=== PATIENT | male | born 1950 | race Caucasian/White ===

== ENCOUNTER → 2017-12-24 08:33 | Outpatient (CLI) | payer MEDICARE, OTHER, SELFPAY ==
--- NOTE | 2017-12-24 12:33 | PFT ---
INTRODUCTION: The patient is a 67-year-old male currently under the care of Dr. Mendiola the presents for pulmonary function testing secondary to a diagnosis of cough. Respiratory therapy reports good patient effort. Bronchodilators were used during testing. INTERPRETATION: Forced expiration spirometry demonstrates no evidence of a large airways obstructive ventilatory defect. There was no significant response to aerosolized bronchodilators, based upon strict ATS criteria. Spirometry did indicate the presence of a decreased FVC to 69% of predicted, which can be seen in restrictive lung mechanics. However, lung volumes would need to be completed to confirm the presence of a restrictive ventilatory impairment. IMPRESSION: Grossly normal spirometry. No significant bronchodilator response. Reduced FVC could be suggestive of underlying restrictive ventilatory impairment, however, lung volumes would need to be completed to confirm this assertion.
== END ==
PROVIDERS: Family Provider Family Medicine; PCP Family Medicine; Visit Provider Otolaryngology Otolaryngology/Facial Plastic Surgery
DX: R05 Cough (principal)
CPT/HCPCS: 94060

== ENCOUNTER → 2018-02-24 20:00 | Outpatient (CLI) | payer MEDICARE, OTHER, SELFPAY | PROVIDERS: Family Provider Family Medicine; PCP Family Medicine; Visit Provider Internal Medicine Critical Care Medicine | DX: G47.10 Hypersomnia, unspecified (principal) | CPT/HCPCS: 95810 ==

== ENCOUNTER → 2018-04-14 20:00 | Outpatient (CLI) | payer MEDICARE, OTHER, SELFPAY | PROVIDERS: Family Provider Family Medicine; PCP Family Medicine; Visit Provider Nurse Practitioner Acute Care | DX: G47.33 Obstructive sleep apnea (adult) (pediatric) (principal) | CPT/HCPCS: 95811 ==

== ENCOUNTER → 2019-08-28 08:45 | Outpatient (CLI) | payer MEDICARE, OTHER, SELFPAY ==
[2019-08-27 15:32] VITALS: BMI 34.3
== END ==
PROVIDERS: PCP Family Medicine; Referring Provider Internal Medicine Cardiovascular Disease; Visit Provider Internal Medicine Cardiovascular Disease
DX: R00.1 Bradycardia, unspecified (principal)
CPT/HCPCS: 93225; 93226

== ENCOUNTER → 2019-09-15 06:48 | Outpatient (CLI) | payer MEDICARE, OTHER, SELFPAY ==
[2019-08-27 15:32] VITALS: BMI 34.3
--- NOTE | 2019-09-15 06:49 | ECHOCS_ITS ---
Reason For Study: MURMUR Procedure This was a 2D Doppler, Color Flow transthoracic echocardiogram. The study was technically difficult. Due to body habitus. Contrast injection was performed. Exam performed in department. Left Ventricle Based upon the 2D echocardiographic and contrast enhanced images obtained there appears to be grossly normal left ventricular size, wall motion, and systolic function. The estimated ejection fraction is 65 %. No evidence for diastolic dysfunction. Right Ventricle Normal RV size. Normal systolic function. Atria Normal left atrium. Normal right atrium. No doppler evidence for ASD. Mitral Valve There is mild mitral annular calcification. Mild diffuse mitral valve thickening. Trivial mitral valve insufficiency. Tricuspid Valve Normal tricuspid valve. Trivial tricuspid valve insufficiency. Right ventricular systolic pressure estimated to be 28 mmHg. Aortic Valve Trisinus/trileaflet aortic valve. Mild focal aortic valve calcification. Trivial aortic valve insufficiency. Pulmonic Valve The pulmonic valve is not well visualized. Trivial pulmonic valve insufficiency. Great Vessels Normal sized aortic root. Pericardium/Pleural No pericardial effusion. Medication Diluted definity 3.0ml given slow IV push to enhance endocardial definition. MMode/2D Measurements & Calculations LVIDd: 4.5 cm IVSd: 0.90 cm Ao root diam: 3.3 cm LVIDs: 2.8 cm LVPWd: 0.98 cm RVDd: 4.2 cm FS: 37.5 % LAV(MOD-bp): 46.0 ml LA A4 area: 15.3 cm2 LA dimension(2D): 4.4 cm LAV(MOD-bp) Indexed: 22.1 ml/m2 LAV(MOD-sp2): 52.3 ml LAV(MOD-sp4): 39.9 ml RA A4 area: 13.5 cm2 Time Measurements MV dec time: 0.20 sec Doppler Measurements & Calculations MV E max trever: 67.1 cm/sec Lat Peak E' Trever: 7.8 cm/sec Med Peak E' Trever: 5.4 cm/sec MV A max trever: 88.5 cm/sec E/E' lat: 8.6 E/E' med: 12.5 MV E/A: 0.76 Ao V2 max: 154.3 cm/sec AI max trever: 365.7 cm/sec LV V1 max: 103.3 cm/sec Ao max P.5 mmHg AI max P.5 mmHg LV V1 max P.3 mmHg Ao V2 mean: 103.0 cm/sec AI dec slope: 195.6 cm/sec2 Ao mean P.7 mmHg AI P1/2t: 547.5 msec Ao V2 VTI: 31.5 cm PA V2 max: 116.3 cm/sec TR max trever: 248.9 cm/sec TR max P.9 mmHg Interpretation Summary The study was technically difficult. Contrast injection was performed. Based upon the 2D echocardiographic and contrast enhanced images obtained there appears to be grossly normal left ventricular size, wall motion, and systolic function. The estimated ejection fraction is 65 %. There is mild mitral annular calcification. Mild diffuse mitral valve thickening. Trivial mitral valve insufficiency. Trivial aortic valve insufficiency. Trivial tricuspid valve insufficiency. Trivial pulmonic valve insufficiency. Right ventricular systolic pressure estimated to be 28 mmHg. No evidence for diastolic dysfunction. Ordering Physician: Hermes Smith Referring Physician: Arun Ortiz Performed By: Veronica Roy, ANAND, RVT
--- NOTE | 2019-09-15 20:57 | STRESSREP ---
Stress Test Report Date: 09-15-2019 Procedure: Exercise tolerance test/imaging study Indications: Chest pain Consent: Per the patient Procedure: The patient exercised on a José Miguel protocol for 9 minutes completing Stage III achieving a peak heart rate of 131 bpm (85 % predicted maximal heart rate) with a peak blood pressure 172/68 mmHg and a peak MET capacity of 10 METs. The baseline ECG demonstrated sinus bradycardia. The peak exercise ECG demonstrated somatic/motion artifact with no obvious ECG changes. There was a rare PVC during exercise. The functional capacity was considered good. There was no complaint of chest discomfort during exercise or recovery. The examination was discontinued secondary to dyspnea. Impression: 1. Technically adequate (percent predicted maximal heart rate greater than 85%) exercise tolerance test 2. Peak exercise ECG with somatic/motion artifact with no obvious ECG changes 3. There was a rare PVC during exercise 4. Nuclear images pending Myocardial perfusion imaging study: Technique: The patient was injected with 14.5 mCi of technetium 99m Cardiolite and subsequently rest SPECT Cardiolite nuclear imaging was obtained in the horizontal long, vertical long, and short axis views. The patient exercised on a José Miguel protocol for 9 minutes completing Stage III achieving a peak heart rate of 131 bpm (85 % predicted maximal heart rate) with a peak blood pressure 172/68 mmHg and a peak MET capacity of 10 METs. The patient was injected with 44.2 mCi of technetium 99m Cardiolite and subsequently stress SPECT Cardiolite nuclear imaging was obtained in the horizontal long, vertical long, and short axis views. A gated Cardiolite study at peak stress was obtained. Interpretation: Rest and stress SPECT Cardiolite nuclear imaging status post realignment, normalization, and attenuation correction, demonstrates the appearance of relative uniform tracer uptake and myocardial perfusion appearing within normal limits. There is end systolic thickening and brightening. The gated Cardiolite study demonstrates myocardial thickening and inward wall motion. The reported LVEF is 85 %. Impression: 1. Rest and stress SPECT Cardiolite nuclear imaging demonstrate relative uniform tracer uptake and myocardial perfusion appearing within normal limits. 2. The gated Cardiolite study reports an LVEF of 85 %. This note was generated with [employer] software. It may contain incorrect words, spelling, and punctuation that were not noted in checking the note before signing.
== END ==
PROVIDERS: PCP Family Medicine; Referring Provider Internal Medicine Cardiovascular Disease; Visit Provider Internal Medicine Cardiovascular Disease
DX: R07.9 Chest pain, unspecified (principal); R01.1 Cardiac murmur, unspecified
CPT/HCPCS: 78452; 93017; 93306; A9500; Q9957; A4216; C8929

== ENCOUNTER 2020-05-15 06:09 | Emergency (ER) | payer MEDICARE, OTHER, SELFPAY ==
[2019-11-25 09:55] VITALS: BMI 34.6
[2020-05-15 06:10] VITALS: BP 145/60; PULSE 55; RESP 21; TEMP 36.5; O2SAT 96; BMI 34.5
--- NOTE | 2020-05-15 06:20 | EKG12_ITS ---
Test Reason : CP Blood Pressure : / mmHG Vent. Rate : 053 BPM Atrial Rate : 053 BPM P-R Int : 180 ms QRS Dur : 084 ms QT Int : 488 ms P-R-T Axes : 028 -24 -11 degrees QTc Int : 457 ms Sinus bradycardia Minimal voltage criteria for LVH, may be normal variant Cannot rule out Anterior infarct , age undetermined Abnormal ECG Confirmed by FEDERICA LUQUE, LAZARA ([id number]), content editor STANLEY MATAMOROS ([id number]) on 05/16/2020 2:01:08 PM Referred By: VOLODYMYR Confirmed By:LAZARA STALLWORTH MD
--- NOTE | 2020-05-15 06:20 | RAD_ITS ---
STUDY: X-RAY CHEST REASON FOR EXAM: Male, 69 years old. Chest pain radiating to back and right shoulder. TECHNIQUE: Single AP portable view of the chest. COMPARISON: None. FINDINGS: Poor inspiration with some bibasilar atelectasis. There is no demonstrated pleural abnormality. There is moderate cardiac enlargement. Normal mediastinum and eva. Normal visualized pulmonary arteries. Normal visualized aortic arch and descending thoracic aorta. Normal visualized thoracic spine. Normal visualized ribs, clavicles, and shoulders. There is no demonstrated abnormality of the visualized soft tissue structures of the upper abdomen. RAD/Chest 1 View (Portable) IMPRESSION: Poor inspiration with some bibasilar atelectasis. Electronically Signed: Anson Narayan MD at 7:12 EST Tel , Service support ,
--- NOTE | 2020-05-15 06:24 | ED.VIS.GEN ---
History of Present Illness Chief Complaint: Chest Pain Informant: Patient Onset: Today Narrative: Present by private vehicle sudden midsternal sharp chest pain awakening from sleep 1/2-hour prior to arrival. Pain rating to his back and right shoulder. Denies dyspnea. Denies any pain with deep breaths. States has a normal cough however no tobacco history. History of hypertension hypercholesterolemia. Denies diabetes history. History of enlarged prostate. States he has stress test this past September when he went and saw Dr. Smith. He states he was referred by himself, stating after PCP visit, he noticed a concern look from nurses when they looked at his vitals. No history of heart cath. Denies family history of MIs at a young age. No recent travel, surgeries, or immobilizations. No history of PE or DVT. States currently his chest pain symptoms has resolved has mild pain in his back and right shoulder. No medications taken prior to arrival. 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 Smoking Status: Never smoker - Family History Maternal Family History: Family History (Last Reviewed 11/25/19 @ 15:08 by Ronit CAMPOS, PA) Mother CVA (cerebral vascular accident) Father CHF (congestive heart failure) Brother Cancer Family History: Reports: Stroke Paternal Family History: Family History (Last Reviewed 11/25/19 @ 15:08 by Ronit CAMPOS, PA) Mother CVA (cerebral vascular accident) Father CHF (congestive heart failure) Brother Cancer Family History: Reports: - - Peripheral vascular disease Review of Systems General: Denies: Chills, Fever, Sweats Eyes: Denies: Visual changes - bilaterally, Diplopia ENT: Denies: Rhinorrhea, Sore throat Cardiovascular: Reports: Chest pain. Denies: Palpitations Respiratory: Reports: Cough. Denies: Dyspnea, Dyspnea on exertion Gastrointestinal: Denies: Abdominal pain, Nausea, Vomiting, Diarrhea, Melena, Hematochezia Genitourinary: Denies: Dysuria, Hematuria, Frequency Musculoskeletal: Denies: Back pain, Extremity Pain Skin: Denies: Rash, Wounds Neurological: Denies: Headache, Weakness, Numbness Physical Exam Vital Signs/Narrative: Vital Signs Temp Pulse Resp BP Pulse Ox 05/15/20 06:10 97.7 F L 55 L 21 H 145/60 H 96 Inital Vital Signs reviewed: Yes General: Well nourished, Well developed, No Acute Distress Head: Normocephalic, Atraumatic Eyes: Perrl, EOMI ENT: Moist mucous membranes, No rhinorrhea Neck: Supple, Nontender Cardiovascular: Regular rate, Regular rhythm, No murmurs Respiratory: No distress, CTA bilaterally, Chest nontender Abdomen: Soft, Nontender, Nondistended, Normal bowel sounds Back: Nontender, Normal Inspection Extremities: Nontender, No edema Skin: Normal color, No rash Neurological: Alert, Oriented x3, Cranial nerves II-XII grossly intact, Normal Strength, Normal Sensation Psychological: Normal affect, Normal Mood Diagnostic/Tx/Re-eval - EKG Initial EKG Interpretation: Sinus Rhythm - Sinus rate of 53, no ST changes. T wave inversion on leads III and aVF, similar to December 2015. - Medical Decision Making Patient EKG notes chronic T wave inversions inferior leads. Given aspirin. Initial cardiac work-up is negative. Chest x-ray reports some bibasilar atelectasis per radiology. Reevaluation patient improving symptoms. Heart score is a 3. Stress test this past September. Will obtain a 3-hour repeat troponin for evaluation. Patient denies any respiratory symptoms or any pain with deep breaths for concerns for PE. Patient signed out to morning physician for results and disposition. ED Disposition - Plan for ED Patient: Diagnosis: Chest pain Instructions: ED Chest Pain Atypical Unkn Cause Referrals: Arun Ortiz III, MD [Primary Care Provider] - Hermes Smith MD [STAFF PHYSICIAN] - 3-5 Days
[2020-05-15 06:28] VITALS: O2SAT 96
[2020-05-15 06:30] LABS: Absolute Neutrophil Count 2.8 X10^3/uL (2.0-7.7); Basophil# 0.05 X10^3/uL; Basophil% 0.7 % (0-1); Eosinophil# 0.34 X10^3/uL; Eosinophils% 4.8 % (0-5); Hematocrit 38.8 % (40-54); Hemoglobin 13.4 g/dL (13.0-16.5); Lymphocyte % 41.1 % (19-41); Mean Corp Hgb Conc 34.5 g/dL (32-36); Mean Corpuscular Hgb 36.4 pg (27.0-32.0); Mean Corpuscular Volume 105.4 fL (80-94); Monocyte# 0.95 X10^3/uL; Monocyte% 13.5 % (0-10); NRBC Flagged by Analyzer 0 % (0-5); Neutrophil % 39.8 % (47-70); Platelet Count 101 K/mm3 (150-450); RBC Distribution Width SD 54.6 fl (35.1-43.9); Red Blood Count 3.68 M/mm3 (4.6-6.2); White Blood Count 7.1 K/mm3 (4.4-11.0)
[2020-05-15 06:52] LABS: Anion Gap 4 (5-15); BUN 15 mg/dL (7-18); BUN/Creat Ratio 17.8 RATIO (10-20); Calcium,Total 8.5 mg/dL (8.5-10.1); Chloride 113 mmol/L (98-107); Creatinine, Serum 0.84 mg/dL (0.70-1.30); EST Glomerular Filtration Rate 96 mL/min (>60); Est Glom Filt Rate - Afr Amer 116 mL/min (>60); Estimated Creatinine Clearance 78.69 ml/min; Glucose 103 mg/dL (74-106); Potassium 4.5 mmol/L (3.5-5.1); Sodium Level 142 mmol/L (136-145)
--- NOTE | 2020-05-15 07:09 | ED.RN ---
, JOYCE, WAS CALLED AND UPDATED ABOUT POC BY MILTON ZAPATA. WENT HOME AND WILL BE BACK IF HE'S DISCHARGED.
[2020-05-15] MEDS: Aspirin 81 MG TAB.CHEW 324 MG PO (07:24)
[2020-05-15 09:07] VITALS: BP 126/62; PULSE 47; RESP 15; O2SAT 97
[2020-05-15 09:41] VITALS: BP 122/51; PULSE 47; RESP 16; O2SAT 97
== END 2020-05-15 09:42 | disposition home or self-care (01) ==
PROVIDERS: Emergency Provider Emergency Medicine; PCP Family Medicine
DX: R07.9 Chest pain, unspecified (principal); E78.00 Pure hypercholesterolemia, unspecified; E78.5 Hyperlipidemia, unspecified
CPT/HCPCS: 71045; 80048; 84484; 85025; 93005; 99285; A4216

== ENCOUNTER 2022-04-12 22:00 | Emergency (ER) | payer MEDICARE, OTHER, SELFPAY ==
[2022-04-12 22:02] VITALS: BP 151/63; PULSE 63; RESP 18; TEMP 37.2; O2SAT 97; BMI 33.6
[2022-04-12 22:20] VITALS: RESP 18; O2SAT 98
[2022-04-12 22:21] VITALS: O2SAT 97
--- NOTE | 2022-04-12 22:40 | RAD_ITS ---
STUDY: X-RAY - UNILATERAL RIBS ( LEFT ) REASON FOR EXAM: Male, 71 years old. pain TECHNIQUE: 4 view(s) of the ribs. COMPARISON: 05/15/2020. FINDINGS: No acute fracture or dislocation. Cardiomediastinal contours are enlarged, similar compared to the prior. Please refer to the x-ray chest from the same date for additional findings. RAD/Ribs Unil 2V No CXR IMPRESSION: No acute fracture. Electronically Signed: Robby Morel MD at 23:31 EDT ,
--- NOTE | 2022-04-12 22:40 | RAD_ITS ---
INDICATION: cough EXAMINATION/TECHNIQUE: X-RAY - XR Chest 2 Views COMPARISON: 05/15/2020 FINDINGS: LINES/DEVICES: None. LUNGS: Right perihilar hazy opacity. No edema or effusion. No pneumothorax. MEDIASTINUM AND CARDIOVASCULAR STRUCTURES: Atherosclerotic calcifications and enlarged cardiomediastinal contours, similar compared to the prior. BONES AND SOFT TISSUES: Unremarkable. RAD/Chest PA and Lateral IMPRESSION: Right perihilar hazy opacity, concerning for infection. Electronically Signed: Robby Morel MD at 23:28 EDT ,
--- NOTE | 2022-04-12 23:50 | EDS_ITS ---
HPI History of Present Illness Chief Complaint: Cough Narrative Narrative: Patient presents with because of cough that he has had for the last 2 to 3 weeks. It is gotten to the point where over the past few days he developed left-sided rib pain that radiates towards the front. It is in his left lower rib cage. He has had a cough with occasional clear sputum production for the last few weeks. It only hurts in his ribs when he coughs. He denies any fevers. No chills. No nausea or vomiting. No other symptoms. [facility] Medical History Allergic rhinitis Colon polyps Dehydration Essential hypertension Heme + stool Lung nodule Mixed hyperlipidemia Obesity (BMI 30-39.9) LENA (obstructive sleep apnea) Partial small bowel obstruction Prostatic hypertrophy, benign Upper airway cough syndrome Home Medications bisoprolol 5 mg-hydrochlorothiazide 6.25 mg tablet 1 tab PO DAILY 12/31/15 [History Last Taken 12/31/15 09:30] finasteride 5 mg tablet 5 mg PO DAILY 12/31/15 [History Last Taken 12/31/15 09:30] multivitamin,ms-zqqk-lsenaghh 27 mg-0.4 mg tablet 1 tab PO DAILY 12/31/15 [History Last Taken 12/31/15 09:30] simvastatin 40 mg tablet 40 mg PO QHS 12/31/15 [History Last Taken 12/30/15] tamsulosin 0.4 mg capsule 0.4 mg PO QHS 12/31/15 [History Last Taken 12/30/15] loratadine 10 mg tablet (Claritin) 10 mg PO DAILY PRN 08/27/19 [History Last Taken Unknown] ascorbic acid (vitamin C) 500 mg tablet 500 mg PO DAILY 01/12/22 [History Last Taken Unknown] elderberry fruit 200 mg capsule 400 mg PO DAILY 01/12/22 [History Last Taken Unknown] benzonatate 100 mg capsule 100 mg PO TID PRN cough #20 caps 04/12/22 [Rx Last Taken Unknown] doxycycline monohydrate 100 mg capsule 100 mg PO BID #14 caps 04/12/22 [Rx Last Taken Unknown] Allergy/AdvReac Type Severity Reaction Status Date / Time nabumetone Allergy Severe Rash Verified 04/12/22 22:02 lisinopril AdvReac Severe cough Verified 04/12/22 22:02 Family History Mother CVA (cerebral vascular accident) Father CHF (congestive heart failure) Brother Cancer Prostate Surgical History History of appendectomy History of eye surgery Social History Smoking Status: Never smoker alcohol intake: never substance use type: does not use caffeine: Yes Type: tea Number of servings: 2 ROS ROS ED ROS Narrative Constitutional: No fever, no chills. HEENT: No sore throat. No neck pain. No loss of vision. No rhinorrhea. Cardiovascular: Left-sided posterior rib/chest pain. No palpitations. No pedal edema. Respiratory: Positive cough, no shortness of breath. Clear sputum production. Abdominal: No abdominal pain. No nausea. No vomiting. Genitourinary: No dysuria. No hematuria. Musculoskeletal: No myalgias. No arthralgias. Neurologic: No headaches. No dizziness. No lightheadedness. Skin: No rash. No change in color. Psychiatric: No depression. No anxiety. EXAM Physical Exam Narrative Exam Narrative: Afebrile. Vital signs noted. HEENT: Normocephalic. Atraumatic. PERRL, EOMI. Neck soft and supple. No point tenderness or step off. Cardiovascular: Regular rate and rhythm. No murmurs, rubs, or gallops appreciated. Positive tenderness to palpation left posterior rib cage without crepitance around rib #10 and rib #9. Respiratory: No tachypnea. Lungs clear to auscultation bilaterally. Gastrointestinal: Abdomen soft, nontender, with normoactive bowel sounds. No rebound or guarding. Neurological: Awake. Alert. Nonfocal, nonlateralizing. Skin: No rash. Normal color. No pallor. Musculoskeletal: No pedal edema. Full range of motion extremities. Const Vital Signs: 04/12/22 22:02 04/12/22 22:20 04/12/22 22:21 Temperature 98.9 F Temperature Source Temporal Pulse Rate 63 Respiratory Rate 18 18 Respiratory Effort Normal Non-Labored Respiratory Depth Normal Respiratory Pattern Normal Blood Pressure 151/63 H Blood Pressure Mean 92 Pulse Ox 97 98 Oxygen Delivery Method Room Air Room Air Room Air MDM MDM MDM Narrative Medical decision making narrative: I do feel the patient may have more costochondritis type symptoms as he only has pain when he coughs and it radiates towards the front. I did obtain left rib x- rays which I interpreted and there is no evidence of fracture. I also obtained and interpreted myself a PA and lateral chest x-ray which shows no definitive infiltrate. However, radiology read shows right perihilar hazy opacity which is concerning for infection. Lower lobe is not febrile, I will treat him with antibiotics in the form of doxycycline. He was given his first dose here in the emergency department and prescriptions written for doxycycline and Tessalon. He will take penh-nso-cuuwzsz analgesics as needed. I feel he can be discharged safely home with follow-up. They state they have an appointment with his primary care provider on Saturday of next week. Return instructions to the emergency department were reviewed. Disposition is discharged home in stable condition. Radiography Diagnostic Testing: Clinical Impression(s) from Imaging Studies Chest X-Ray 04/12/22 22:40 IMPRESSION: Right perihilar hazy opacity, concerning for infection. Electronically Signed: Robby Morel MD at 23:28 EDT , Ribs X-Ray 04/12/22 22:40 IMPRESSION: No acute fracture. Electronically Signed: Robby Morel MD at 23:31 EDT , Discharge Plan Triage Chief Complaint: Cough ED Provider: Nico Ha Dx/Rx/DC Orders Clinical Impression: Cough, Rib pain on left side, Pneumonia Instructions: Costochondritis, ED Pneumonia (Adult) Prescriptions: New benzonatate 100 mg capsule 100 mg PO TID PRN (Reason: cough) Qty: 20 0RF doxycycline monohydrate 100 mg capsule 100 mg PO BID Qty: 14 0RF No Action loratadine [Claritin] 10 mg tablet 10 mg PO DAILY PRN ascorbic acid (vitamin C) 500 mg tablet 500 mg PO DAILY elderberry fruit 200 mg capsule 400 mg PO DAILY simvastatin 40 MG tablet 40 mg PO QHS Label Comments: cholesterol tamsulosin 0.4 MG capsule 0.4 mg PO QHS Label Comments: prostate finasteride 5 MG tablet 5 mg PO DAILY Label Comments: prostate bisoprolol-hydrochlorothiazide 1 TAB tablet 1 tab PO DAILY Label Comments: blood pressure multivitamin,fp-ynof-lbgyrqjd 1 TABLET tablet 1 tab PO DAILY Label Comments: vitamin Primary Care Provider: Dayne Fajardo Referrals: Dayne Fajardo MD [Primary Care Provider] - 3-5 Days if not improving Disposition Disposition: Home, Self Care
[2022-04-13] MEDS: Doxycycline 100 MG CAPSULE PO
[2022-04-13 00:04] VITALS: PULSE 56; RESP 18; TEMP 36.7; O2SAT 96
== END 2022-04-13 00:05 | disposition home or self-care (01) ==
PROVIDERS: Emergency Provider Emergency Medicine; PCP Internal Medicine; Visit Provider Emergency Medicine
DX: J18.9 Pneumonia, unspecified organism (principal); R05.9 Cough, unspecified; R07.81 Pleurodynia; G47.33 Obstructive sleep apnea (adult) (pediatric)
CPT/HCPCS: 71046; 71100; 99283

== ENCOUNTER 2022-08-08 11:46 | Emergency (ER) | payer MEDICARE, OTHER, SELFPAY ==
[2022-08-08 11:47] VITALS: BP 127/54; PULSE 53; RESP 16; TEMP 35.7; O2SAT 100; BMI 30.1
--- NOTE | 2022-08-08 12:07 | EKG12_ITS ---
Test Reason : Blood Pressure : / mmHG Vent. Rate : 055 BPM Atrial Rate : 055 BPM P-R Int : 178 ms QRS Dur : 076 ms QT Int : 508 ms P-R-T Axes : 009 -25 009 degrees QTc Int : 485 ms Sinus bradycardia Prolonged QT Abnormal ECG Confirmed by CHILANGO LUQUE, THOMAS ([id number]), newspaper editor managing CATHRYN MOULTON ([id number]) on 08/10/2022 8:53:50 AM Referred By: Confirmed By:TRAVIS KEE MD
--- NOTE | 2022-08-08 12:08 | EX.ED.DYSGE1 ---
HPI History of Present Illness Chief Complaint: Nausea/Vomiting Detail of Chief Complaint: Vomiting Informant: patient Narrative Narrative: Patient presents with vomiting that started this morning. Patient states he vomited countless times. He denies any diarrhea. He denies abdominal pain. He denies chest pain or shortness of breath. He denies sick contacts. He denies eating any unusual or undercooked foods. Patient denies blood in the stool or black tarry stool. He denies hematemesis. Generally just feels weak. [facility] Medical History (Updated 08/08/22 @ 17:[address] Yoselin Merida, DO) Allergic rhinitis Colon polyps Dehydration Essential hypertension Heme + stool Lung nodule Mixed hyperlipidemia Obesity (BMI 30-39.9) LENA (obstructive sleep apnea) Partial small bowel obstruction Prostatic hypertrophy, benign Upper airway cough syndrome Home Medications bisoprolol 5 mg-hydrochlorothiazide 6.25 mg tablet 1 tab PO DAILY 12/31/15 [History Last Taken 12/31/15 09:30] finasteride 5 mg tablet 5 mg PO DAILY 12/31/15 [History Last Taken 12/31/15 09:30] multivitamin,jj-tymx-mdxjnrwa 27 mg-0.4 mg tablet 1 tab PO DAILY 12/31/15 [History Last Taken 12/31/15 09:30] simvastatin 40 mg tablet 40 mg PO QHS 12/31/15 [History Last Taken 12/30/15] tamsulosin 0.4 mg capsule 0.4 mg PO QHS 12/31/15 [History Last Taken 12/30/15] loratadine 10 mg tablet (Claritin) 10 mg PO DAILY PRN 08/27/19 [History Last Taken Unknown] ascorbic acid (vitamin C) 500 mg tablet 500 mg PO DAILY 01/12/22 [History Last Taken Unknown] elderberry fruit 200 mg capsule 400 mg PO DAILY 01/12/22 [History Last Taken Unknown] benzonatate 100 mg capsule 100 mg PO TID PRN cough #20 caps 04/12/22 [Rx Last Taken Unknown] ondansetron 4 mg disintegrating tablet 4 mg PO Q8H PRN PRN Nausea #10 tabs 08/08/22 [Rx Last Taken Unknown] Allergy/AdvReac Type Severity Reaction Status Date / Time nabumetone Allergy Severe Rash Verified 05/16/22 10:13 lisinopril AdvReac Severe cough Verified 05/16/22 10:13 Family History Mother CVA (cerebral vascular accident) Father CHF (congestive heart failure) Brother Cancer Prostate Surgical History History of appendectomy History of eye surgery Social History Smoking Status: Never smoker alcohol intake: never substance use type: does not use caffeine: Yes Type: tea Number of servings: 2 ROS ROS ED Review of Systems ROS Unobtainable: other Constitutional Constitutional ED: Reports lethargy; Denies chills, fever(s), sweats or weight loss Eyes Eyes: Denies blurry vision, change in vision or diplopia ENT ENT ED: Denies rhinorrhea or sore throat Cardiovascular Cardiovascular: Denies chest pain, orthopnea or racing heartbeat Respiratory/Chest Respiratory/Chest: Denies cough, dyspnea, dyspnea on exertion, orthopnea or sputum Gastrointestinal Gastrointestinal: Reports nausea and vomiting; Denies abdominal pain or diarrhea Genitourinary Genitourinary ED: Denies dysuria, hematuria or urinary frequency Musculoskeletal Musculoskeletal: Denies arthralgias, back pain, myalgias or neck pain Integumentary Denies abscess, Abrasions or rash Neurologic Neurologic: Denies headache(s) or weakness Psychiatric Psychiatric: Denies anxiety, depression or suicidal thoughts Endocrine Endocrinology: Denies polydipsia, polyphagia or polyuria Hematologic/Lymphatic Hematologic/Lymphatic: Denies easy bleeding, easy bruising or lymphadenopathy Allergic/Immunologic Allergic/Immunologic ED: Denies mouth swelling, tongue swelling or urticaria EXAM Physical Exam Const Vital Signs: 08/08/22 11:47 Temperature 96.2 F L Temperature Source Temporal Pulse Rate 53 L Respiratory Rate 16 Blood Pressure 127/54 H Blood Pressure Mean 78 Pulse Ox 100 Oxygen Delivery Method Room Air Positive well nourished and well developed General Appearance ED: well developed and NAD HEENT Reports TM's clear and moist mucous membranes normocephalic and atraumatic; Negative for trauma or tenderness Tympanic Membrane ED: Yes TM's clear Eyes PERRL and EOMs intact bilaterally General Eye ED: Negative for pale conjunctiva or scleral icterus Neck no lymphadenopathy, supple and no JVD General: Negative for tenderness Chest Wall inspection of chest normal and palpation of chest normal Chest: Negative for tenderness Resp normal respiratory effort and clear to auscultation bilaterally Effort and Inspection: Negative for respiratory distress or pain with movement Auscultation: Negative for rhonchi, wheezes or diminished lung sounds Cardio regular rate, regular rhythm, S1 normal heart sound, S2 normal heart sound and no murmurs Peripheral Pulses: pulses 2+ throughout GI normal to inspection, nondistended, normoactive bowel sounds, soft to palpation, non-tender, non-distended and no masses Back/Spine no CVA tenderness and no thoracic nor lumbar tenderness Extremity normal to inspection General Extremety ED: Negative for edema General Extremity: Negative for edema Neuro oriented x3, CN's II-XII intact bilaterally, no sensory deficits noted and gait normal Sensorium / Orientation: awake, alert, oriented to person, oriented to place and oriented to time Motor Exam: strength 5/5 throughout and strength abnormal Psych mental status grossly normal Skin no rashes or lesions noted and no wounds MDM MDM MDM Narrative Medical decision making narrative: IV line established on arrival. Patient was given normal saline fluid bolus and given Zofran 4 mg IV. Patient had no further vomiting. Lab work-up significant for a normal WBC count of 9.5. Hemoglobin was 14. Chemistries potassium slightly elevated 5.7 although I suspect this may be possibly related to hemolysis. BUN was 20 g 1.44. LFTs obtained showed a minimally elevated AST of 63 and a normal ALT of 46 with a slightly elevated bilirubin of 1.3. Lipase was normal at 301. Troponin was normal. EKG obtained showed sinus rhythm with a ventricular rate of 55 bpm with slightly prolonged QT. Patient had 2 L of normal saline in the department. On repeat examination after repeating his BMP and noting that his lactate improved from 3.2-2.7 and his creatinine also improved now to 1.23. I feel patient can be safely discharged to home. His abdominal exam is benign. He is not having chest pain. I suspect likely viral etiology for his emesis. Patient and comfortable with going home. I do not feel he is having acute coronary syndrome or acute intra-abdominal process. Lab Data Attestation: I reviewed the patient's lab results. Labs: Laboratory Results - last 24 hr 08/08/22 08/08/22 08/08/22 12:44 12:44 12:44 WBC 9.5 RBC 3.70 L Hgb 14.0 Hct 39.6 L MCV 107.0 H MCH 37.8 H MCHC 35.4 RDW Std Deviation 59.2 H RDW Coeff of Mo 14.6 Plt Count 108 L MPV 11.4 Immature Gran % (Auto) 0.300 Neut % (Auto) 83.8 H Lymph % (Auto) 8.0 L [place] % (Auto) 7.4 Eos % (Auto) 0.3 Baso % (Auto) 0.2 Absolute Neuts (auto) 8.0 H Absolute Lymphs (auto) 0.76 L Nucleated RBC % 0 Sodium 138 Potassium 5.7 H Chloride 107 Carbon Dioxide 22.0 Anion Gap 9 BUN 20 H Creatinine 1.44 H Estim Creat Clear Calc 44.63 Est GFR (MDRD) Af Amer 62 Est GFR (MDRD) Non-Af 51 L BUN/Creatinine Ratio 13.9 Glucose 137 H Lactic Acid 3.2 H* Calcium 9.0 Total Bilirubin 1.30 H AST 63 H ALT 46 Alkaline Phosphatase 136 H Troponin I High Sens 7 Total Protein 8.0 Albumin 2.9 L Globulin 5.1 H Albumin/Globulin Ratio 0.6 L Lipase 301 Urine Color Urine Clarity Urine pH Ur Specific [place] Urine Protein Urine Glucose (UA) Urine Ketones Urine Occult Blood Urine Nitrite Urine Bilirubin Urine Urobilinogen Ur Leukocyte Esterase Urine RBC Urine WBC Ur Squamous Epith Cells Urine Bacteria Urine Mucus 08/08/22 08/08/22 08/08/22 14:54 16:20 16:20 WBC RBC Hgb Hct MCV MCH MCHC RDW Std Deviation RDW Coeff of Mo Plt Count MPV Immature Gran % (Auto) Neut % (Auto) Lymph % (Auto) [place] % (Auto) Eos % (Auto) Baso % (Auto) Absolute Neuts (auto) Absolute Lymphs (auto) Nucleated RBC % Sodium 140 Potassium 5.1 Chloride 113 H Carbon Dioxide 20.0 L Anion Gap 7 BUN 21 H Creatinine 1.23 Estim Creat Clear Calc 52.25 Est GFR (MDRD) Af Amer 75 Est GFR (MDRD) Non-Af 62 BUN/Creatinine Ratio 17.1 Glucose 112 H Lactic Acid 2.7 H* Calcium 8.5 Total Bilirubin AST ALT Alkaline Phosphatase Troponin I High Sens Total Protein Albumin Globulin Albumin/Globulin Ratio Lipase Urine Color Yellow Urine Clarity Clear Urine pH 5.0 Ur Specific [place] 1.020 Urine Protein 30 H Urine Glucose (UA) Normal Urine Ketones 15 H Urine Occult Blood 10 H Urine Nitrite Negative Urine Bilirubin Negative Urine Urobilinogen Normal Ur Leukocyte Esterase 25 H Urine RBC 0-5 SEEN Urine WBC 0-5 SEEN Ur Squamous Epith Cells 0-5 SEEN Urine Bacteria 0 SEEN Urine Mucus 0 SEEN EKG Initial EKG: Attestation: I personally reviewed and interpreted this EKG as follows: Comments: Sinus rhythm with a ventricular rate of 55 bpm with no acute ST segment changes Discharge Plan Triage Chief Complaint: Nausea/Vomiting Other Complaint: Dizziness ED Provider: Yoselin Merida Dx/Rx/DC Orders Clinical Impression: Vomiting, Acute viral syndrome Instructions: ED Viral Syndrome (Adult), ED Vomiting (Adult) Prescriptions: New ondansetron [ondansetron] 4 mg tablet,disintegrating 4 mg PO Q8H PRN PRN (Reason: Nausea) Qty: 10 0RF No Action loratadine [Claritin] 10 mg tablet 10 mg PO DAILY PRN ascorbic acid (vitamin C) 500 mg tablet 500 mg PO DAILY elderberry fruit 200 mg capsule 400 mg PO DAILY simvastatin 40 MG tablet 40 mg PO QHS Label Comments: cholesterol tamsulosin 0.4 MG capsule 0.4 mg PO QHS Label Comments: prostate finasteride 5 MG tablet 5 mg PO DAILY Label Comments: prostate bisoprolol-hydrochlorothiazide 1 TAB tablet 1 tab PO DAILY Label Comments: blood pressure multivitamin,[id number] 1 TABLET tablet 1 tab PO DAILY Label Comments: vitamin benzonatate 100 mg capsule 100 mg PO TID PRN (Reason: cough) Qty: 20 0RF Primary Care Provider: Dayne Fajardo Referrals: Dayne Fajardo MD [Primary Care Provider] - 3-5 Days Disposition Disposition: Home, Self Care
[2022-08-08] MEDS: 0.9% Normal Saline 1,000 ML 1000 ML IV (12:48)
[2022-08-08] MEDS: Ondansetron 4 MG/2 ML Vial IV (12:48)
[2022-08-08 12:59] LABS: Absolute Lymphocyte Count 0.76 X10^3/uL (0.83-4.51); Basophil# 0.02 X10^3/uL; Basophil% 0.2 % (0-1); Eosinophil# 0.03 X10^3/uL; Eosinophils% 0.3 % (0-5); Hematocrit 39.6 % (40-54); Lymphocyte # 0.76 X10^3/ul (0.83-4.51); Mean Corp Hgb Conc 35.4 g/dL (32-36); Mean Corpuscular Hgb 37.8 pg (27.0-32.0); Mean Platelet Vol. 11.4 fl (6.2-12.0); Monocyte# 0.71 X10^3/uL; Monocyte% 7.4 % (0-10); NRBC Flagged by Analyzer 0 % (0-5); Neutrophil # 7.99 X10^3/uL (2.7-7.7); Neutrophil % 83.8 % (47-70); Platelet Count 108 K/mm3 (150-450); RBC Distribution Width CV 14.6 % (11.6-14.6); RBC Distribution Width SD 59.2 fl (35.1-43.9); White Blood Count 9.5 K/mm3 (4.4-11.0)
[2022-08-08 13:12] LABS: ALB/GLOB Ratio 0.6 RATIO (0.9-2.4); AST(SGOT) 63 U/L (15-37); Alanine Aminotransfer ALT/SGPT 46 U/L (16-61); Albumin, Serum 2.9 g/dL (3.2-5.0); Alkaline Phosphatase 136 U/L (45-117); Anion Gap 9 (5-15); BUN 20 mg/dL (7-18); BUN/Creat Ratio 13.9 RATIO (10-20); Chloride 107 mmol/L (98-107); Creatinine, Serum 1.44 mg/dL (0.70-1.30); EST Glomerular Filtration Rate 51 mL/min (>60); Est Glom Filt Rate - Afr Amer 62 mL/min (>60); Estimated Creatinine Clearance 44.63 ml/min; Globulin 5.1 g/dL (2.2-4.2); Glucose 137 mg/dL (74-106); Lipase 301 U/L (73-393); Potassium 5.7 mmol/L (3.5-5.1); Sodium Level 138 mmol/L (136-145); Troponin-I HS 7 pg/mL (3.0-78.0)
[2022-08-08 13:38] LABS: Lactic Acid 3.2 mmol/L (0.4-1.9)
--- NOTE | 2022-08-08 13:38 | ED.RN ---
lab called lactic of 3.2 dr palacio
[2022-08-08 13:47] VITALS: RESP 18
[2022-08-08] MEDS: 0.9% Normal Saline 1,000 ML 999 ML IV (14:20)
[2022-08-08 15:00] LABS: Bacteria 0 SEEN /hpf (None Seen); Mucous, Urine 0 SEEN /hpf (<or=2+)
[2022-08-08 15:02] LABS: Color, Urine Yellow (Yellow); Glucose, Dipstick Normal (Normal); Ketone-Dipstick 15 mg/dl (Negative); Leukocyte Esterase-Dipstick 25 /ul (Negative); Nitrite-Dipstick Negative (Negative); Occult Blood-Urine 10 /ul (Negative); Protein-Dipstick 30 mg/dl (Negative); Urine Bilirubin Dipstick Negative (Negative); Urine Urobilinogen Normal (Normal)
[2022-08-08 15:03] LABS: Urine Clarity Clear (Clear)
[2022-08-08 15:10] LABS: Red Blood Cells-Urine 0-5 SEEN /hpf (0-5); Squamous Epithelial Cells - UA 0-5 SEEN /hpf (0-5); White Blood Cells 0-5 SEEN /hpf (0-5)
[2022-08-08 15:47] VITALS: BP 138/74; PULSE 54; RESP 18; O2SAT 95
[2022-08-08 16:52] LABS: Reflex Lactate? Y
[2022-08-08 16:58] LABS: Anion Gap 7 (5-15); BUN 21 mg/dL (7-18); BUN/Creat Ratio 17.1 RATIO (10-20); Calcium,Total 8.5 mg/dL (8.5-10.1); Chloride 113 mmol/L (98-107); Creatinine, Serum 1.23 mg/dL (0.70-1.30); EST Glomerular Filtration Rate 62 mL/min (>60); Est Glom Filt Rate - Afr Amer 75 mL/min (>60); Estimated Creatinine Clearance 52.25 ml/min; Glucose 112 mg/dL (74-106); Potassium 5.1 mmol/L (3.5-5.1); Sodium Level 140 mmol/L (136-145)
[2022-08-08 17:11] LABS: Lactic Acid 2.7 mmol/L (0.4-1.9)
[2022-08-08 17:47] VITALS: RESP 18
[2022-08-08 17:52] VITALS: RESP 18
[2022-08-08 20:32] LABS: Reflex Lactate? Y
== END 2022-08-08 17:53 | disposition home or self-care (01) ==
PROVIDERS: Emergency Provider Emergency Medicine; PCP Internal Medicine; Visit Provider Emergency Medicine
DX: B34.9 Viral infection, unspecified (principal); I10 Essential (primary) hypertension; E78.2 Mixed hyperlipidemia; Z79.899 Other long term (current) drug therapy
CPT/HCPCS: 36415; 80048; 80053; 81001; 83605; 83690; 84484; 85025; 93005; 96361; 96374; 99284; J7030; A4216; J2405

== ENCOUNTER 2022-10-27 05:16 | Emergency (ER) | payer MEDICARE, OTHER, SELFPAY ==
[2022-10-27 05:17] VITALS: BP 145/55; PULSE 63; RESP 15; TEMP 36.3; O2SAT 99; BMI 29.6
--- NOTE | 2022-10-27 05:20 | EKG12_ITS ---
Test Reason : CP Blood Pressure : / mmHG Vent. Rate : 064 BPM Atrial Rate : 064 BPM P-R Int : 154 ms QRS Dur : 078 ms QT Int : 420 ms P-R-T Axes : 008 -29 012 degrees QTc Int : 433 ms Normal sinus rhythm Normal ECG Confirmed by LAZARA STALLWORTH MD ([id number]), sports editor CATHRYN MOULTON ([id number]) on 10/29/2022 11:09:03 AM Referred By: EKTA Confirmed By:LAZARA STALLWORTH MD
--- NOTE | 2022-10-27 05:55 | RAD_ITS ---
INDICATION: chest pain EXAMINATION/TECHNIQUE: X-RAY - XR Chest 2 Views COMPARISON: 04/12/2022. FINDINGS: LINES/DEVICES: None. LUNGS: No consolidation or evidence of an effusion. No evidence of edema or a pneumothorax. MEDIASTINUM AND CARDIOVASCULAR STRUCTURES: Cardiac silhouette is normal in size and contour. Mediastinum is unremarkable. BONES AND SOFT TISSUES: No acute abnormality. RAD/Chest PA and Lateral IMPRESSION: No evidence of acute cardiopulmonary disease. Electronically Signed: Ubaldo Baez DO at 6:23 EDT ,
[2022-10-27] MEDS: Orphenadrine 60 MG/2 ML Ampul IV (06:02)
[2022-10-27 06:04] LABS: Absolute Neutrophil Count 6.1 X10^3/uL (2.0-7.7); Basophil# 0.04 X10^3/uL; Basophil% 0.4 % (0-1); Eosinophil# 0.17 X10^3/uL; Eosinophils% 1.9 % (0-5); Hematocrit 39.2 % (40-54); Hemoglobin 13.6 g/dL (13.0-16.5); Lymphocyte % 18.8 % (19-41); Mean Corp Hgb Conc 34.7 g/dL (32-36); Mean Corpuscular Hgb 38.3 pg (27.0-32.0); Mean Corpuscular Volume 110.4 fL (80-94); Mean Platelet Vol. 11.8 fl (6.2-12.0); Monocyte# 0.99 X10^3/uL; Monocyte% 10.9 % (0-10); NRBC Flagged by Analyzer 0 % (0-5); Neutrophil # 6.09 X10^3/uL (2.7-7.7); Neutrophil % 67.2 % (47-70); POSITIVE COUNT YES; Platelet Count 80 K/mm3 (150-450); RBC Distribution Width CV 13.2 % (11.6-14.6); RBC Distribution Width SD 53.5 fl (35.1-43.9); Red Blood Count 3.55 M/mm3 (4.6-6.2); White Blood Count 9.1 K/mm3 (4.4-11.0)
[2022-10-27 06:21] LABS: Anion Gap 4 (5-15); BUN 19 mg/dL (7-18); Chloride 103 mmol/L (98-107); Creatinine, Serum 0.86 mg/dL (0.70-1.30); EST Glomerular Filtration Rate 93 mL/min (>60); Est Glom Filt Rate - Afr Amer 112 mL/min (>60); Estimated Creatinine Clearance 73.66 ml/min; Glucose 106 mg/dL (74-106); Magnesium 2.1 mg/dL (1.6-2.6); Potassium 4.5 mmol/L (3.5-5.1); Sodium Level 129 mmol/L (136-145); Troponin-I HS 14 pg/mL (3.0-78.0)
[2022-10-27 06:25] VITALS: BP 154/90; PULSE 67; RESP 16
[2022-10-27 07:00] VITALS: BP 113/52; PULSE 65; RESP 14; O2SAT 100
[2022-10-27] MEDS: Ketorolac 15 MG/ML Vial IV (07:06)
--- NOTE | 2022-10-27 07:53 | EDS_ITS ---
HPI History of Present Illness Chief Complaint: Chest Pain Informant: patient and spouse/S.O. Narrative Narrative: Patient is a 72-year-old male with past medical history of hyperlipidemia and obstructive sleep apnea and previous hypertension. 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 Patient states he did not have pain while performing any of those activities and was able to go to sleep as normal. He states that he woke early this morning with pain in the right upper chest which then moved towards the right posterior back/shoulder. He states there is no associated nausea vo miting diaphoresis or shortness of breath. He also denies any history of recent surgery travel hormone use or DVT/PE. Patient states he was concerned this could be cardiac in nature as the symptoms came on while sleeping and with his he presents for evaluation [facility] Medical History (Updated 10/27/22 @ 08:[address] Alexander Julian, DO) Allergic rhinitis Colon polyps Dehydration Essential hypertension Heme + stool Lung nodule Mixed hyperlipidemia Obesity (BMI 30-39.9) LENA (obstructive sleep apnea) Partial small bowel obstruction Prostatic hypertrophy, benign Upper airway cough syndrome Home Medications finasteride 5 mg tablet 5 mg PO DAILY 12/31/15 [History Last Taken 12/31/15 09:30] multivitamin,cb-vjve-[id number] 27 mg-0.4 mg tablet 1 tab PO DAILY 12/31/15 [History Last Taken 12/31/15 09:30] simvastatin 40 mg tablet 40 mg PO QHS 12/31/15 [History Last Taken 12/30/15] tamsulosin 0.4 mg capsule 0.4 mg PO QHS 12/31/15 [History Last Taken 12/30/15] ascorbic acid (vitamin C) 500 mg tablet 500 mg PO DAILY 01/12/22 [History Last Taken Unknown] elderberry fruit 200 mg capsule 400 mg PO DAILY 01/12/22 [History Last Taken Unknown] furosemide 40 mg tablet (Lasix) 40 mg PO DAILY 10/27/22 [History Last Taken Unknown] methocarbamol 500 mg tablet 500 mg PO 4X/DAY PRN PRN Muscle pain/spasm #40 tabs 10/27/22 [Rx Last Taken Unknown] spironolactone 100 mg tablet 100 mg PO DAILY 10/27/22 [History Last Taken Unknown] Allergy/AdvReac Type Severity Reaction Status Date / Time nabumetone Allergy Severe Rash Verified 10/27/22 05:22 lisinopril AdvReac Severe cough Verified 10/27/22 05:22 Family History Mother CVA (cerebral vascular accident) Father CHF (congestive heart failure) Brother Cancer Prostate Surgical History History of appendectomy History of eye surgery Social History Smoking Status: Never smoker alcohol intake: never substance use type: does not use caffeine: Yes Type: tea Number of servings: 2 ROS ROS ED Constitutional Constitutional ED: Denies chills or fever(s) ENT ENT ED: Denies sore throat Cardiovascular Cardiovascular: Reports chest pain; Denies palpitations or racing heartbeat Respiratory/Chest Respiratory/Chest: Denies cough or dyspnea Gastrointestinal Gastrointestinal: Denies abdominal pain, diarrhea, nausea or vomiting Genitourinary Genitourinary ED: Denies dysuria Musculoskeletal Musculoskeletal: Reports back pain and other Details: Positive right\shoulder pain Integumentary Denies Abrasions or rash Neurologic Neurologic: Denies headache(s) or paresthesias Hematologic/Lymphatic Hematologic/Lymphatic: Denies easy bleeding or easy bruising EXAM Physical Exam Const Vital Signs: 10/27/22 05:17 10/27/22 05:23 10/27/22 06:25 Temperature 97.3 F L Temperature Source Oral Pulse Rate 63 67 Respiratory Rate 15 16 Respiratory Effort Normal Non-Labored Blood Pressure 145/55 H 154/90 H Blood Pressure Mean 85 111 Pulse Ox 99 Oxygen Delivery Method Room Air 10/27/22 07:00 Temperature Temperature Source Pulse Rate 65 Respiratory Rate 14 Respiratory Effort Blood Pressure 113/52 L Blood Pressure Mean 72 Pulse Ox 100 Oxygen Delivery Method Room Air Positive well nourished and well developed General Appearance ED: well developed Eyes PERRL and EOMs intact bilaterally Neck supple Neck Narrative: Carotid pulses are plus 2 out of 4 bilaterally are equal and symmetric No carotid bruit noted Chest Wall palpation of chest normal Chest Narrative: No bony deformity or crepitance Resp normal respiratory effort and clear to auscultation bilaterally Cardio regular rate and regular rhythm Rate: other Other Details: Radial pulses are plus 2 out of 4 bilaterally are equal and symmetric GI normal to inspection, nondistended, normoactive bowel sounds, non-tender, non- distended and no masses GI Narrative: No voluntary guarding or rigidity no pulsatile mass Auscultation: normoactive bowel sounds Palpation: soft Back/Spine Back/Spine Narrative: Patient does have mild reproducible pain along the right posterior shoulder/rhomboid region and along the angle of the scapula There is no obvious bony deformity or overlying soft tissue changes to suggest trauma or infection. Extremity normal to inspection Extremity Narrative: No asymmetric edema no pitting edema negative Homans' sign bilaterally Neuro oriented x3 and CN's II-XII intact bilaterally Sensorium / Orientation: alert Psych mental status grossly normal Skin no rashes or lesions noted MDM MDM MDM Narrative Medical decision making narrative: Patient presented to the ER slightly hypertensive but otherwise with stable vitals. He reported sudden onset of right upper chest/back pain with no trauma but did have increased activity in the day before. He is low risk for cardiovascular disease as he is a man over the age of 40 and has hyperlipidemia but otherwise no further risk factors for CAD or DVT/PE. We discussed taking aspirin secondary to his report of chest pain but he states this causes nasal bleeding and he does not want to do so and therefore would not be provided. Differential includes acute coronary syndrome pulmonary embolus muscular strain pneumonia or pneumothorax. Chest x-ray revealed no acute lung pathology EKG is sinus rhythm and initial troponin is normal. Patient does not have pleuritic chest pain and he does not have any risk factors for PE but with the atypical presentation a D-dimer will be obtained. At this time D-dimer and repeat troponin are pending. As patient is low risk cardiovascular disease and the history and exam indicates this is more musculoskeletal in nature if repeat troponin and D-dimer are negative then patient will be safe for discharge and outpatient follow-up. Patient will be signed out to the daytime physician Dr. Ray pending these results. History & Record Review Discussion w/independent historian: Patient and Significant other Lab Data Attestation: I reviewed the patient's lab results. Labs: Laboratory Results - last 24 hr 10/27/22 10/27/22 05:47 05:47 WBC 9.1 RBC 3.55 L Hgb 13.6 Hct 39.2 L MCV 110.4 H MCH 38.3 H MCHC 34.7 RDW Std Deviation 53.5 H RDW Coeff of Mo 13.2 Plt Count 80 L MPV 11.8 Immature Gran % (Auto) 0.800 Neut % (Auto) 67.2 Lymph % (Auto) 18.8 L [place] % (Auto) 10.9 H Eos % (Auto) 1.9 Baso % (Auto) 0.4 Absolute Neuts (auto) 6.1 Absolute Lymphs (auto) 1.70 Nucleated RBC % 0 Sodium 129 L Potassium 4.5 Chloride 103 Carbon Dioxide 22.0 Anion Gap 4 L BUN 19 H Creatinine 0.86 Estim Creat Clear Calc 73.66 Est GFR (MDRD) Af Amer 112 Est GFR (MDRD) Non-Af 93 BUN/Creatinine Ratio 22.0 H Glucose 106 Calcium 9.0 Magnesium 2.1 Troponin I High Sens 14 Radiography Diagnostic Testing: Clinical Impression(s) from Imaging Studies Chest X-Ray 10/27/22 05:55 IMPRESSION: No evidence of acute cardiopulmonary disease. Electronically Signed: Ubaldo Baez DO at 6:23 EDT Reading Location ID and State: [facility] / [place] Tel , Service support , Chest x-ray as interpreted by the emergency medicine physician reveals no acute infiltrate pneumothorax or pleural effusion Discharge Plan Triage Chief Complaint: Chest Pain ED Provider: Alexander Julian Dx/Rx/DC Orders Clinical Impression: Thoracic myofascial strain, Hyperlipidemia Instructions: ED Chest Pain, Uncertain Cause, ED Thoracic Spine Strain Prescriptions: New methocarbamol 500 mg tablet 500 mg PO 4X/DAY PRN PRN (Reason: Muscle pain/spasm) Qty: 40 0RF No Action ascorbic acid (vitamin C) 500 mg tablet 500 mg PO DAILY elderberry fruit 200 mg capsule 400 mg PO DAILY simvastatin 40 MG tablet 40 mg PO QHS Label Comments: cholesterol tamsulosin 0.4 MG capsule 0.4 mg PO QHS Label Comments: prostate finasteride 5 MG tablet 5 mg PO DAILY Label Comments: prostate multivitamin,rj-fraw-fwtjdsvo 1 TABLET tablet 1 tab PO DAILY Label Comments: vitamin furosemide [Lasix] 40 mg Tablet 40 mg PO DAILY spironolactone 100 mg Tablet 100 mg PO DAILY Primary Care Provider: Dayne Fajardo Referrals: Dayne Fajardo MD [Primary Care Provider] - Activity Restrictions/Additional Instructions: Please follow-up with your family doctor for repeat evaluation and take over-the -counter pain medication on top of the muscle relaxer for improved symptom control. If you have any further concerns please return the hospital for repeat evaluation Disposition Disposition: Home, Self Care
[2022-10-27 08:00] VITALS: BP 128/53; PULSE 64; RESP 14; O2SAT 99
[2022-10-27 08:05] LABS: D-Dimer Quantitative (DVT/PE) 3.37 FEU/ug/m (0.27-0.49)
--- NOTE | 2022-10-27 08:05 | CT_ITS ---
STUDY: CTA CHEST REASON FOR EXAM: Male, 72 years old. Chest pain and abnormal d-dimer RADIATION DOSAGE (If Supplied By Facility): CTDIvol = ( 9.7 ) mGy, DLP = ( 397.76 ) mGycm TECHNIQUE: The examination was performed with the intravenous administration of IV 100mL Isovue-370. Post-processing of the angiographic images was performed, with multiplanar reformation and 3D reconstruction. Individualized dose optimization techniques were used for this CT. COMPARISON: FINDINGS: Normal enhancement of the main pulmonary artery and right and left pulmonary arteries. Normal enhancement of the bilateral peripheral pulmonary arteries. There is no demonstrated pulmonary embolism. There is atherosclerotic calcification of the aortic arch with tortuosity. There is no demonstrated aortic dissection. There are calcifications of the coronary arteries. Normal mediastinum. Normal hilar regions. Normal visualized trachea and bronchi. There is minimal dependent atelectasis within the lower lobes. There is minimal left basilar atelectasis and/or scarring within the lingula as well. There is bilateral gynecomastia. There are degenerative changes of thoracic spine. There is a left seventh posterior rib deformity consistent with a healed fracture. The limited images of the upper abdomen demonstrate ascites. There are two low-attenuation foci within the liver both measuring up to a centimeter. The liver has a cirrhotic morphology. CT/CTA Chest W/WO Contrast IMPRESSION: No demonstrated pulmonary embolism or arterial dissection. Atherosclerosis. Minimal dependent atelectasis within the lower lobes. Cirrhotic liver. Ascites. Indeterminate low-attenuation foci within the liver, recommend right upper quadrant ultrasound for further characterization. Gynecomastia. Degenerative changes of the thoracic spine. Electronically Signed: Jenny Mayorga MD at 9:28 EDT ,
[2022-10-27 09:00] VITALS: BP 146/82; PULSE 68; RESP 16; O2SAT 98
[2022-10-27 09:14] LABS: Troponin-I HS 16 pg/mL (3.0-78.0)
[2022-10-27 10:00] VITALS: BP 133/81; PULSE 65; RESP 18; O2SAT 99
== END 2022-10-27 10:29 | disposition home or self-care (01) ==
PROVIDERS: Emergency Provider Emergency Medicine; PCP Internal Medicine; Visit Provider Emergency Medicine
DX: S29.019A Strain of muscle and tendon of unspecified wall of thorax, initial encounter (principal); E78.5 Hyperlipidemia, unspecified; G47.33 Obstructive sleep apnea (adult) (pediatric); Z79.899 Other long term (current) drug therapy; X58.XXXA Exposure to other specified factors, initial encounter
CPT/HCPCS: 71046; 71275; 80048; 83735; 84484; 85025; 85379; 93005; 96374; 96375; 99282; Q9967; A4216

== ENCOUNTER → 2022-11-19 | Outpatient (CLI) | payer MEDICARE, OTHER, SELFPAY | END | disposition home or self-care (01) | LOC: LABSPEC 15:03 | PROVIDERS: PCP Internal Medicine; Referring Provider Nurse Practitioner; Visit Provider Nurse Practitioner | DX: R41.0 Disorientation, unspecified (principal) | CPT/HCPCS: 82140 ==

== ENCOUNTER 2022-12-14 12:14 | Inpatient (IN) | payer MEDICARE, OTHER, SELFPAY ==
[2022-12-14 12:15] VITALS: BP 121/53; PULSE 76; RESP 16; TEMP 36.6; O2SAT 100; BMI 28.3
--- NOTE | 2022-12-14 12:57 | EX.ED.DYSGE1 ---
HPI History of Present Illness Chief Complaint: Abn Labs Informant: patient and spouse/S.O. Narrative Narrative: Patient brought with his significant other for low sodium that was drawn yesterday as an outpatient, they were told by staff at their primary care office to come to the emergency department. Sounds like the labs were drawn as a routine follow-up from hospital admission when he was in [place] 2 or 3 weeks ago. He was admitted because he was confused with hepatic encephalopathy according to the significant other with ammonia in the 130s. She states that he has been diagnosed with cirrhosis of the liver since last year for unknown reasons and is still undergoing work-up, has an outpatient appointment with a specialist at [facility] this coming week after the weekend. Has had 2 paracenteses so far, and is occasionally confused, but generally better since his last admission in [place]. Patient denies any acute symptoms now. [facility] Medical History (Updated 12/14/22 @ 17:31 by Sanjana Loredo) Allergic rhinitis Colon polyps Dehydration Essential hypertension Heme + stool Lung nodule Mixed hyperlipidemia Obesity (BMI 30-39.9) LENA (obstructive sleep apnea) Partial small bowel obstruction Prostatic hypertrophy, benign Sleep apnea Upper airway cough syndrome Home Medications finasteride 5 mg tablet 5 mg PO DAILY 12/31/15 [History Last Taken 12/14/22] simvastatin 40 mg tablet 40 mg PO QHS 12/31/15 [History Last Taken 12/13/22] tamsulosin 0.4 mg capsule 0.4 mg PO QHS 12/31/15 [History Last Taken 12/13/22] ascorbic acid (vitamin C) 500 mg tablet 500 mg PO DAILY 01/12/22 [History Last Taken 12/14/22] elderberry fruit 200 mg capsule 400 mg PO DAILY 01/12/22 [History Last Taken 12/14/22] furosemide 40 mg tablet (Lasix) 40 mg PO DAILY 10/27/22 [History Last Taken 12/14/22] spironolactone 100 mg tablet 100 mg PO DAILY 10/27/22 [History Last Taken 12/14/22] lactulose 10 gram/15 mL oral solution 15 ml PO BID BM 12/14/22 [History Last Taken 12/14/22] multivitamin 1 tab PO DAILY SUPPLEMENT 12/14/22 [History Last Taken 12/14/22] pantoprazole 40 mg tablet,delayed release 40 mg PO BID GERD 12/14/22 [History Last Taken 12/14/22] Allergy/AdvReac Type Severity Reaction Status Date / Time nabumetone Allergy Severe Rash Verified 12/14/22 12:16 lisinopril AdvReac Severe cough Verified 12/14/22 12:16 Family History Mother CVA (cerebral vascular accident) Father CHF (congestive heart failure) Brother Cancer Prostate Surgical History History of appendectomy History of eye surgery Social History Smoking Status: Never smoker alcohol intake: never substance use type: does not use caffeine: Yes Type: tea Number of servings: 2 ROS ROS ED Constitutional Constitutional ED: Denies chills or fever(s) Eyes Eyes: Denies change in vision or diplopia ENT ENT ED: Denies rhinorrhea or sore throat Cardiovascular Cardiovascular: Denies chest pain or palpitations Respiratory/Chest Respiratory/Chest: Denies cough or dyspnea Gastrointestinal Gastrointestinal: Denies abdominal pain, diarrhea, nausea or vomiting Genitourinary Genitourinary ED: Denies dysuria or hematuria Musculoskeletal Musculoskeletal: Denies back pain or neck pain Integumentary Denies abscess, jaundice or rash Neurologic Neurologic: Reports as per HPI and confusion; Denies headache(s), paresthesias or weakness Psychiatric Psychiatric: Denies anxiety or suicidal thoughts EXAM Physical Exam Const Vital Signs: 12/14/22 12:15 12/14/22 13:58 12/14/22 15:57 Temperature 98 F 98 F Temperature Source Temporal Temporal Pulse Rate 76 71 Respiratory Rate 16 16 Respiratory Effort Normal Non-Labored Respiratory Pattern Normal Blood Pressure 121/53 H 122/47 H Blood Pressure Mean 75 72 Pulse Ox 100 100 Oxygen Delivery Method Room Air Room Air Positive well nourished and well developed General Appearance ED: well developed and NAD HEENT Reports moist mucous membranes normocephalic and atraumatic Eyes PERRL and EOMs intact bilaterally Eyes Narrative: Disconjugate gaze Neck full ROM and supple Resp normal respiratory effort and clear to auscultation bilaterally Cardio regular rate, regular rhythm and no murmurs GI non-tender and non-distended; Negative for hepatosplenomegaly Auscultation: normoactive bowel sounds Palpation: soft Back/Spine no CVA tenderness General Back: other FROM Extremity normal to inspection General Extremety ED: Negative for edema, pulses abnormal or tenderness General Extremity: Negative for edema or pulses abnormal Neuro oriented x3, CN's II-XII intact bilaterally and no sensory deficits noted Sensorium / Orientation: awake and alert Motor Exam: strength 5/5 throughout Skin no rashes or lesions noted and no wounds MDM MDM MDM Narrative Medical decision making narrative: I did not have prior labs recently showing the sodium level that he was sent in for so we redrew them, showing a sodium level of 123 and a bicarb level of 19. His liver enzymes are noted and likely due to the known cirrhosis. His ammonia levels in the 40s he is not necessarily encephalopathic right now but he is a little confused. He is doing well clinically and hemodynamically. His urine appears to be infected unknown if he has symptoms so I am treating it, and sending for culture. Rocephin given. Discussed with hospitalist. History & Record Review Additional record(s) reviewed:: Prior labs Lab Data Attestation: I reviewed the patient's lab results. Labs: Laboratory Results - last 24 hr 12/14/22 12/14/22 12/14/22 13:23 13:23 13:23 WBC 8.1 RBC 3.47 L Hgb 13.1 Hct 35.8 L MCV 103.2 H MCH 37.8 H MCHC 36.6 H RDW Std Deviation 49.0 H RDW Coeff of Mo 13.0 Plt Count 106 L MPV 10.0 Immature Gran % (Auto) 0.500 Neut % (Auto) 73.8 H Lymph % (Auto) 11.0 L Jay % (Auto) 13.5 H Eos % (Auto) 1.0 Baso % (Auto) 0.2 Absolute Neuts (auto) 5.9 Absolute Lymphs (auto) 0.89 Nucleated RBC % 0 PT 17.0 H INR 1.4 Sodium 123 L Potassium 5.0 Chloride 97 L Carbon Dioxide 19.0 L Anion Gap 7 BUN 22 H Creatinine 1.16 Estim Creat Clear Calc 54.61 Est GFR (MDRD) Af Amer 80 Est GFR (MDRD) Non-Af 66 BUN/Creatinine Ratio 19.0 Glucose 118 H Calcium 9.0 Total Bilirubin 2.40 H AST 68 H ALT 66 H Alkaline Phosphatase 169 H Ammonia Total Protein 7.4 Albumin 2.8 L Globulin 4.6 H Albumin/Globulin Ratio 0.6 L Urine Color Urine Clarity Urine pH Ur Specific [place] Urine Protein Urine Glucose (UA) Urine Ketones Urine Occult Blood Urine Nitrite Urine Bilirubin Urine Urobilinogen Ur Leukocyte Esterase Urine RBC Urine WBC Ur Squamous Epith Cells Urine Bacteria Urine Mucus 12/14/22 12/14/22 13:23 14:02 WBC RBC Hgb Hct MCV MCH MCHC RDW Std Deviation RDW Coeff of Mo Plt Count MPV Immature Gran % (Auto) Neut % (Auto) Lymph % (Auto) Jay % (Auto) Eos % (Auto) Baso % (Auto) Absolute Neuts (auto) Absolute Lymphs (auto) Nucleated RBC % PT INR Sodium Potassium Chloride Carbon Dioxide Anion Gap BUN Creatinine Estim Creat Clear Calc Est GFR (MDRD) Af Amer Est GFR (MDRD) Non-Af BUN/Creatinine Ratio Glucose Calcium Total Bilirubin AST ALT Alkaline Phosphatase Ammonia 46.0 H Total Protein Albumin Globulin Albumin/Globulin Ratio Urine Color Yellow Urine Clarity Sl. Cloudy Urine pH 6.0 Ur Specific [place] 1.015 Urine Protein 15 H Urine Glucose (UA) Normal Urine Ketones Negative Urine Occult Blood 25 H Urine Nitrite Negative Urine Bilirubin Negative Urine Urobilinogen Normal Ur Leukocyte Esterase 500 H Urine RBC 0-5 SEEN Urine WBC 25-50 SEEN Ur Squamous Epith Cells 0-5 SEEN Urine Bacteria 1+ Urine Mucus 0 SEEN Management Discussion w/another healthcare provider: Hospitalist Discharge Plan Dx/Rx/DC Orders Clinical Impression: Acute hyponatremia, Acute UTI, Hepatic cirrhosis Disposition Disposition: Acute Care Hospital [facility] Discharge Date/Time: 12/14/22 16:52
[2022-12-14 13:36] LABS: Absolute Lymphocyte Count 0.89 X10^3/uL (0.83-4.51); Absolute Neutrophil Count 5.9 X10^3/uL (2.0-7.7); Basophil# 0.02 X10^3/uL; Basophil% 0.2 % (0-1); Eosinophil# 0.08 X10^3/uL; Hematocrit 35.8 % (40-54); Hemoglobin 13.1 g/dL (13.0-16.5); Lymphocyte # 0.89 X10^3/ul (0.83-4.51); Mean Corp Hgb Conc 36.6 g/dL (32-36); Mean Corpuscular Hgb 37.8 pg (27.0-32.0); Mean Corpuscular Volume 103.2 fL (80-94); Monocyte# 1.09 X10^3/uL; Monocyte% 13.5 % (0-10); NRBC Flagged by Analyzer 0 % (0-5); Neutrophil # 5.94 X10^3/uL (2.7-7.7); Neutrophil % 73.8 % (47-70); Platelet Count 106 K/mm3 (150-450); Red Blood Count 3.47 M/mm3 (4.6-6.2); White Blood Count 8.1 K/mm3 (4.4-11.0)
[2022-12-14 13:56] LABS: Albumin, Serum 2.8 g/dL (3.2-5.0); BUN 22 mg/dL (7-18); Creatinine, Serum 1.16 mg/dL (0.70-1.30); EST Glomerular Filtration Rate 66 mL/min (>60); Est Glom Filt Rate - Afr Amer 80 mL/min (>60); Estimated Creatinine Clearance 54.61 ml/min; Globulin 4.6 g/dL (2.2-4.2); Glucose 118 mg/dL (74-106); Protein, Total 7.4 g/dL (6.4-8.2)
[2022-12-14 13:57] LABS: ALB/GLOB Ratio 0.6 RATIO (0.9-2.4); AST(SGOT) 68 U/L (15-37); Alanine Aminotransfer ALT/SGPT 66 U/L (16-61); Alkaline Phosphatase 169 U/L (45-117); Anion Gap 7 (5-15); Chloride 97 mmol/L (98-107); Sodium Level 123 mmol/L (136-145)
[2022-12-14] MEDS: 0.9% Normal Saline 1,000 ML 100 ML IV (13:57)
[2022-12-14 14:09] LABS: Mucous, Urine 0 SEEN /hpf (<or=2+)
[2022-12-14 14:31] LABS: Color, Urine Yellow (Yellow); Glucose, Dipstick Normal (Normal); Ketone-Dipstick Negative (Negative); Leukocyte Esterase-Dipstick 500 /ul (Negative); Nitrite-Dipstick Negative (Negative); Occult Blood-Urine 25 /ul (Negative); Protein-Dipstick 15 mg/dl (Negative); Specific Gravity, Urine 1.015 (1.002-1.030); Urine Bilirubin Dipstick Negative (Negative); Urine Clarity Sl. Cloudy (Clear); Urine Urobilinogen Normal (Normal)
[2022-12-14 14:32] LABS: International Normalized Ratio 1.4
[2022-12-14 14:39] LABS: Bacteria 1+ /hpf (None Seen); Red Blood Cells-Urine 0-5 SEEN /hpf (0-5); Squamous Epithelial Cells - UA 0-5 SEEN /hpf (0-5); White Blood Cells 25-50 SEEN /hpf (0-5)
[2022-12-14 15:57] VITALS: BP 122/47; PULSE 71; RESP 16; TEMP 36.6; O2SAT 100
[2022-12-14] MEDS: Ceftriaxone 1 GM/50 ML BAG IV (16:14)
[2022-12-14 16:55] VITALS: BMI 27.7
[2022-12-14 17:10] VITALS: BP 124/55; PULSE 91; RESP 16; TEMP 36.4; O2SAT 100
--- NOTE | 2022-12-14 18:03 | PCM.HP.STD ---
HPI - General General Date of Admission: 12/14/22 Date of Service: 12/14/22 Chief Complaint: Hyponatremia found in the lab HPI Narrative BASHIR HERRMANN, is a 72 M was sent to ED for admission after found to have low sodium by PCP. Patient was found to have sodium 123. 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 Since then patient is on furosemide and spironolactone. Patient also has history of intermittent hepatic encephalopathy but currently is on baseline. He is on lactulose. For last 1 or 2 weeks, patient feels intermittent lightheaded and dizziness on standing and walking. Patient denies vomiting, diarrhea or external fluid loss. Patient was admitted in [place] about 3 weeks ago when he fell down, confused and encephalopathic and was treated with spironolactone. [facility] Medical History Allergic rhinitis Colon polyps Dehydration Essential hypertension Heme + stool Lung nodule Mixed hyperlipidemia Obesity (BMI 30-39.9) LENA (obstructive sleep apnea) Partial small bowel obstruction Prostatic hypertrophy, benign Sleep apnea Upper airway cough syndrome Home Medications finasteride 5 mg tablet 5 mg PO DAILY 12/31/15 [History Last Taken 12/14/22] simvastatin 40 mg tablet 40 mg PO QHS 12/31/15 [History Last Taken 12/13/22] tamsulosin 0.4 mg capsule 0.4 mg PO QHS 12/31/15 [History Last Taken 12/13/22] ascorbic acid (vitamin C) 500 mg tablet 500 mg PO DAILY 01/12/22 [History Last Taken 12/14/22] elderberry fruit 200 mg capsule 400 mg PO DAILY 01/12/22 [History Last Taken 12/14/22] furosemide 40 mg tablet (Lasix) 40 mg PO DAILY 10/27/22 [History Last Taken 12/14/22] spironolactone 100 mg tablet 100 mg PO DAILY 10/27/22 [History Last Taken 12/14/22] lactulose 10 gram/15 mL oral solution 15 ml PO BID BM 12/14/22 [History Last Taken 12/14/22] multivitamin 1 tab PO DAILY SUPPLEMENT 12/14/22 [History Last Taken 12/14/22] pantoprazole 40 mg tablet,delayed release 40 mg PO BID GERD 12/14/22 [History Last Taken 12/14/22] Allergy/AdvReac Type Severity Reaction Status Date / Time nabumetone Allergy Severe Rash Verified 12/14/22 12:16 lisinopril AdvReac Severe cough Verified 12/14/22 12:16 Family History Mother CVA (cerebral vascular accident) Father CHF (congestive heart failure) Brother Cancer Prostate Surgical History History of appendectomy History of eye surgery Social History Smoking Status: Never smoker alcohol intake: never substance use type: does not use caffeine: Yes Type: tea Number of servings: 2 ROS ROS Narrative Constitutional: Reports fatigue and weakness. No fever. HEENT: Reports systems reviewed and no addt'l complaints, except as documented Respiratory/Chest: No acute shortness of breath or respiratory distress or wheezing. CVS: Chest pain tightness. Chronic sinus bradycardia. Gastrointestinal: Denies coffee ground emesis, hematemesis or vomiting Genitourinary: Denies burning urination or new urinary tract symptoms Musculoskeletal: Had fall and shortness of breath for which she was admitted in [place] in November 2022. Denies acute joint pain or limited range of motion. No acute injury Neurologic: Denies seizure-like symptoms. No strokelike symptoms. skin: No ulcer. No rash Endocrinology: Reports systems reviewed and no addt'l complaints, except as documented Hematologic/Lymphatic: Reports systems reviewed and no addt'l complaints, except as documented Rest 14 ROS are negative except as mentioned in HPI Vital Signs Vital Signs Vital Signs: 12/14/22 12:15 12/14/22 13:58 12/14/22 15:57 Temperature 98 F 98 F Temperature Source Temporal Temporal Pulse Rate 76 71 Respiratory Rate 16 16 Respiratory Effort Normal Non-Labored Respiratory Depth Respiratory Pattern Normal Blood Pressure 121/53 H 122/47 H Blood Pressure Mean 75 72 Pulse Ox 100 100 Oxygen Delivery Method Room Air Room Air 12/14/22 17:10 12/14/22 17:59 Temperature 97.6 F L Temperature Source Oral Pulse Rate 91 Respiratory Rate 16 Respiratory Effort Normal Respiratory Depth Normal Respiratory Pattern Normal Blood Pressure 124/55 H Blood Pressure Mean 78 Pulse Ox 100 Oxygen Delivery Method Room Air Room Air Weight Weight: 177 lb Body Mass Index (BMI) 27.7 Physical Exam Narrative General: Alert, Oriented x3, Cooperative HEENT: Chronic strabismus. Atraumatic, PERRLA, EOMI, Normocephalic Oral: Oral mucosa moist. No Gingival or Mucosal Lesions/ Ulcerations Neck: Supple, No JVD, Negative Carotid Bruits Lungs: Air entry diminished in bilateral lung bases. No crepitation/rhonchi Cardiovascular: Sinus rhythm. Regular rate, Regular Rhythm, Normal S1, Normal S2, systolic murmur LLSB Abdomen: Bowel Sounds Present, Soft, Non Tender, Non-Distended : No renal angle tenderness. No suprapubic tenderness. Extremities: Mild subtle 1+ pedal pitting bilateral edema, Capillary Refill Less than 3 Seconds Skin: No rashes, No breakdown Musculoskeletal: No Tenderness to Palpation of Joints or Extremities. Neurological: Cranial nerves II-XII grossly intact, DTR 2+/4 and Symmetrical, Neuro grossly intact Psych/Mental Status: Flat affect. Results Lab / Micro Data Result Diagrams: 12/14/22 13:23 12/14/22 13:23 Labs: Laboratory Results - last 24 hr 12/14/22 13:23: PT 17.0 H, INR 1.4 12/14/22 13:23: Sodium 123 L, Potassium 5.0, Chloride 97 L, Carbon Dioxide 19.0 L, Anion Gap 7, BUN 22 H, Creatinine 1.16, Estim Creat Clear Calc 54.61, Est GFR (MDRD) Af Amer 80, Est GFR (MDRD) Non-Af 66, BUN/Creatinine Ratio 19.0, Glucose 118 H, Calcium 9.0, Total Bilirubin 2.40 H, AST 68 H, ALT 66 H, Alkaline Phosphatase 169 H, Total Protein 7.4, Albumin 2.8 L, Globulin 4.6 H, Albumin/Globulin Ratio 0.6 L 12/14/22 13:23: WBC 8.1, RBC 3.47 L, Hgb 13.1, Hct 35.8 L, MCV 103.2 H, MCH 37.8 H, MCHC 36.6 H, RDW Std Deviation 49.0 H, RDW Coeff of Mo 13.0, Plt Count 106 L, MPV 10.0, Immature Gran % (Auto) 0.500, Neut % (Auto) 73.8 H, Lymph % (Auto) 11.0 L, [place] % (Auto) 13.5 H, Eos % (Auto) 1.0, Baso % (Auto) 0.2, Absolute Neuts (auto) 5.9, Absolute Lymphs (auto) 0.89, Nucleated RBC % 0 12/14/22 13:23: Ammonia 46.0 H 12/14/22 14:02: Urine Color Yellow, Urine Clarity Sl. Cloudy, Urine pH 6.0, Ur Specific [place] 1.015, Urine Protein 15 H, Urine Glucose (UA) Normal, Urine Ketones Negative, Urine Occult Blood 25 H, Urine Nitrite Negative, Urine Bilirubin Negative, Urine Urobilinogen Normal, Ur Leukocyte Esterase 500 H, Urine RBC 0-5 SEEN, Urine WBC 25-50 SEEN, Ur Squamous Epith Cells 0-5 SEEN, Urine Bacteria 1+, Urine Mucus 0 SEEN Assessment & Plan Assessment/Plan (1) Chronic hyponatremia: (2) Acute hyponatremia: PLAN: Plan This 72-year-old gentleman is being admitted for subacute, gradual hyponatremia. 1. Subacute/gradual hyponatremia:His sodium was 140 in August 2022, 129 in October 2022 and now 123. Patient is being admitted in PCU. clinical application manager shows normal sinus rhythm in the low 70s. No acute change in mental status seizure patient feels dizzy or lightheaded on walking. IV fluid normal saline 75 mill per hour ordered. Monitor serum sodium every 6 hourly for 24 hours and daily. Hold Lasix and spironolactone. 2. 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 Patient on lactulose. Xifaxan added. Currently patient does not seem to be have acute symptoms of hepatic encephalopathy but he is on baseline. Your chemistry shows elevated ALT AST, total bilirubin 2.4, alkaline phosphatase 169. Hypoalbuminemia, A/G ratio 0.6. Chronic thrombocytopenia due to decompensated cirrhosis. 3. Upper airway cough syndrome and obstructive sleep apnea on . Patient on nocturnal BiPAP 12/8 cm of water. He follows Dr. Yanes. 4. Hypertension, dyslipidemia and history of sinus bradycardia, currently patient is in sinus rhythm. Twelve-lead EKG ordered. Blood pressure normal. DVT prophylaxis: High risk: Lovenox 40 mill subcu daily. Discontinue if platelet count drops less than 50,000 or hemoglobin less than 8 g% Living will/advanced directive/end of life care: Patient does have living will or advanced directive. His is power of meatman for health. After discussion of benefits/risks procedures involved with full code, DNR CC arrest and DNR CC, the patient does not want to be dependent on ventilator however prolong his life if he is terminal or irreversible but wants to try first. In the beginning, the patient does want artificial life support including intubation, tube feed, ventilator and/chest compression, central venous catheter, vasopressor and DC shock if needed Total time spent in [id number] encounter in discussion of advanced directive 17 minutes. Laboratory Results 12/14/22 13:23: PT 17.0 H, INR 1.4 12/14/22 13:23: Sodium 123 L, Potassium 5.0, Chloride 97 L, Carbon Dioxide 19.0 L, Anion Gap 7, BUN 22 H, Creatinine 1.16, Estim Creat Clear Calc 54.61, Est GFR (MDRD) Af Amer 80, Est GFR (MDRD) Non-Af 66, BUN/Creatinine Ratio 19.0, Glucose 118 H, Calcium 9.0, Total Bilirubin 2.40 H, AST 68 H, ALT 66 H, Alkaline Phosphatase 169 H, Total Protein 7.4, Albumin 2.8 L, Globulin 4.6 H, Albumin/Globulin Ratio 0.6 L 12/14/22 13:23: WBC 8.1, RBC 3.47 L, Hgb 13.1, Hct 35.8 L, MCV 103.2 H, MCH 37.8 H, MCHC 36.6 H, RDW Std Deviation 49.0 H, RDW Coeff of Mo 13.0, Plt Count 106 L, MPV 10.0, Immature Gran % (Auto) 0.500, Neut % (Auto) 73.8 H, Lymph % (Auto) 11.0 L, [place] % (Auto) 13.5 H, Eos % (Auto) 1.0, Baso % (Auto) 0.2, Absolute Neuts (auto) 5.9, Absolute Lymphs (auto) 0.89, Nucleated RBC % 0 06/09/23 13:23: Ammonia 46.0 H 12/14/22 13:23: Phosphorus Pending, Magnesium Pending 12/14/22 14:02: Urine Color Yellow, Urine Clarity Sl. Cloudy, Urine pH 6.0, Ur Specific [place] 1.015, Urine Protein 15 H, Urine Glucose (UA) Normal, Urine Ketones Negative, Urine Occult Blood 25 H, Urine Nitrite Negative, Urine Bilirubin Negative, Urine Urobilinogen Normal, Ur Leukocyte Esterase 500 H, Urine RBC 0-5 SEEN, Urine WBC 25-50 SEEN, Ur Squamous Epith Cells 0-5 SEEN, Urine Bacteria 1+, Urine Mucus 0 SEEN Charges/Coding Visit Charges Inpatient E&M: 20314 Init Hosp L3 Procedures Hospitalists Procedures: 98217 Advncd Care Plan 30 Min
[2022-12-14 18:20] LABS: Magnesium 2.4 mg/dL (1.6-2.6); Phosphorus 3.2 mg/dL (2.5-4.9)
[2022-12-14] MEDS: 0.9% Normal Saline 1,000 ML 75 ML IV (20:16)
[2022-12-14 20:24] VITALS: PULSE 74
[2022-12-14 20:32] LABS: Anion Gap 8 (5-15); BUN 22 mg/dL (7-18); BUN/Creat Ratio 20.6 RATIO (10-20); Calcium,Total 8.8 mg/dL (8.5-10.1); Chloride 97 mmol/L (98-107); Creatinine, Serum 1.07 mg/dL (0.70-1.30); EST Glomerular Filtration Rate 72 mL/min (>60); Est Glom Filt Rate - Afr Amer 88 mL/min (>60); Glucose 134 mg/dL (74-106); Potassium 4.7 mmol/L (3.5-5.1); Sodium Level 125 mmol/L (136-145)
[2022-12-14 20:50] VITALS: BP 120/52; PULSE 74; RESP 18; TEMP 36.8; O2SAT 100
[2022-12-14] MEDS: Tamsulosin HCl 0.4 MG Capsule PO (21:15)
[2022-12-14] MEDS: Pantoprazole Sodium 40 MG Tablet PO (21:15)
[2022-12-14] MEDS: Atorvastatin Calcium 20 MG Tablet PO (21:15)
[2022-12-14] MEDS: Lactulose 20 GM/30 ML UDC 10 GM PO (21:15)
[2022-12-14 21:19] VITALS: BP 114/49; PULSE 74; RESP 18; TEMP 36.8; O2SAT 100
[2022-12-15] VITALS (8 sets, daily range): BP systolic 98–116; BP diastolic 47–57; PULSE 63–72; RESP 16–18; TEMP 36.6–36.9; O2SAT 98–100; BMI 27.8
[2022-12-15 01:46] LABS: Anion Gap 8 (5-15); BUN 21 mg/dL (7-18); BUN/Creat Ratio 22.1 RATIO (10-20); Calcium,Total 8.4 mg/dL (8.5-10.1); Chloride 100 mmol/L (98-107); Creatinine, Serum 0.95 mg/dL (0.70-1.30); EST Glomerular Filtration Rate 83 mL/min (>60); Est Glom Filt Rate - Afr Amer 100 mL/min (>60); Estimated Creatinine Clearance 66.68 ml/min; Glucose 109 mg/dL (74-106); Potassium 4.4 mmol/L (3.5-5.1); Sodium Level 126 mmol/L (136-145)
[2022-12-15] MEDS: Enoxaparin 40 MG/0.4 ML Syringe SC (06:00)
[2022-12-15 06:39] LABS: Absolute Neutrophil Count 4.6 X10^3/uL (2.0-7.7); Basophil# 0.03 X10^3/uL; Basophil% 0.4 % (0-1); Eosinophil# 0.12 X10^3/uL; Eosinophils% 1.8 % (0-5); Hematocrit 32.2 % (40-54); Hemoglobin 11.5 g/dL (13.0-16.5); Lymphocyte % 17.6 % (19-41); Mean Corp Hgb Conc 35.7 g/dL (32-36); Mean Corpuscular Volume 106.3 fL (80-94); Mean Platelet Vol. 9.8 fl (6.2-12.0); Monocyte# 0.87 X10^3/uL; Monocyte% 12.8 % (0-10); NRBC Flagged by Analyzer 0 % (0-5); Neutrophil # 4.57 X10^3/uL (2.7-7.7); POSITIVE COUNT YES; Platelet Count 87 K/mm3 (150-450); RBC Distribution Width SD 50.9 fl (35.1-43.9); Red Blood Count 3.03 M/mm3 (4.6-6.2); White Blood Count 6.8 K/mm3 (4.4-11.0)
[2022-12-15 07:15] LABS: Anion Gap 6 (5-15); BUN 21 mg/dL (7-18); BUN/Creat Ratio 25.4 RATIO (10-20); Calcium,Total 8.3 mg/dL (8.5-10.1); Chloride 103 mmol/L (98-107); Creatinine, Serum 0.83 mg/dL (0.70-1.30); EST Glomerular Filtration Rate 97 mL/min (>60); Est Glom Filt Rate - Afr Amer 118 mL/min (>60); Estimated Creatinine Clearance 76.32 ml/min; Glucose 88 mg/dL (74-106); Potassium 4.4 mmol/L (3.5-5.1); Sodium Level 127 mmol/L (136-145)
[2022-12-15] MEDS: Multivitamins,Therapeutic Tablet 1 TABLET PO (08:12)
[2022-12-15] MEDS: Pantoprazole Sodium 40 MG Tablet PO ×2 (08:12→21:57)
[2022-12-15] MEDS: 0.9% Normal Saline 1,000 ML 75 ML IV (08:12)
[2022-12-15] MEDS: Lactulose 20 GM/30 ML UDC 10 GM PO ×2 (08:12→21:57)
[2022-12-15] MEDS: Ascorbic Acid 500 MG Tablet PO (08:12)
[2022-12-15] MEDS: Finasteride 5 MG Tablet PO (08:12)
--- NOTE | 2022-12-15 10:00 | CASEMGMT ---
RN EVE Face to Face with patient for initial transition planning/care coordination assessment. RN CM introduced self and role at [facility]. Patient lying in bed, alert and oriented. Patient willing to participate in assessment and is able to answer all questions appropriately. Care providers, pharmacy, and demographics verified. Patient wishes to discharge home, denies need for home health at this time. Patient states he has no further needs or concerns at this time. CM to follow for discharge planning needs that may arise. PCP: Scotty Specialists: [facility] Liver Specialist; JOSELIN, [employer]; Sajan Yanes, calender runner Preferred Pharmacy: [facility] Insurance: [facility] supplement Prescription Benefit: yes Living Will/HPOA: yes, Kristin Kapadia LNOK: Living Arrangements: Patient lives with in a single story home with 1 step to enter. Patient states he is independent at home. Transportation: DME/HHC: Patient has shower chair, cane, grab bars, cpap at home. Patient denies HHC or SNF. Disposition Plan: Patient to discharge home with family support and follow-up plans in place. Debbie TREJO, RN, CM
--- NOTE | 2022-12-15 10:24 | PN.HOSP_ITS ---
Subjective Subjective Doing well, no issues overnight. Sodium has improved with IV fluids indicative of dehydration is the main reason Objective Data Objective Data Vital Signs: Vital Signs Temp Pulse Resp BP Pulse Ox O2 Del Method O2 Flow Rate 98.2 F 72 16 110/47 L 99 Room Air 100 12/15/22 08:17 12/15/22 08:17 12/15/22 08:17 12/15/22 08:17 12/15/22 08:17 12/15/22 08:17 12/15/22 04:23 Oxygen Flow Rate (L/min) 100 Oxygen Delivery Method Room Air Weight: 177 lb 7.554 oz Body Mass Index (BMI) 27.8 Intake & Output: Intake and Output for Last 24 Hours 12/14/22 12/15/22 12/16/22 03:59 03:59 03:59 Intake Total 676.67 / 676.67 895 / 895 Balance 676.67 / 676.67 895 / 895 Lab / Micro Data Result Diagrams: 12/15/22 05:58 12/15/22 05:58 Labs: Laboratory Results - last 24 hr 12/14/22 13:23: PT 17.0 H, INR 1.4 12/14/22 13:23: Sodium 123 L, Potassium 5.0, Chloride 97 L, Carbon Dioxide 19.0 L, Anion Gap 7, BUN 22 H, Creatinine 1.16, Estim Creat Clear Calc 54.61, Est GFR (MDRD) Af Amer 80, Est GFR (MDRD) Non-Af 66, BUN/Creatinine Ratio 19.0, Glucose 118 H, Calcium 9.0, Total Bilirubin 2.40 H, AST 68 H, ALT 66 H, Alkaline Phosphatase 169 H, Total Protein 7.4, Albumin 2.8 L, Globulin 4.6 H, Albumi n/Globulin Ratio 0.6 L 12/14/22 13:23: WBC 8.1, RBC 3.47 L, Hgb 13.1, Hct 35.8 L, MCV 103.2 H, MCH 37.8 H, MCHC 36.6 H, RDW Std Deviation 49.0 H, RDW Coeff of Mo 13.0, Plt Count 106 L , MPV 10.0, Immature Gran % (Auto) 0.500, Neut % (Auto) 73.8 H, Lymph % (Auto) 11.0 L, [place] % (Auto) 13.5 H, Eos % (Auto) 1.0, Baso % (Auto) 0.2, Absolute Neuts (auto) 5.9, Absolute Lymphs (auto) 0.89, Nucleated RBC % 0 12/14/22 13:23: Ammonia 46.0 H 12/14/22 13:23: Phosphorus 3.2, Magnesium 2.4 12/14/22 14:02: Urine Color Yellow, Urine Clarity Sl. Cloudy, Urine pH 6.0, Ur Specific [place] 1.015, Urine Protein 15 H, Urine Glucose (UA) Normal, Urine Ketones Negative, Urine Occult Blood 25 H, Urine Nitrite Negative, Urine Bilirubin Negative, Urine Urobilinogen Normal, Ur Leukocyte Esterase 500 H, Urine RBC 0-5 SEEN, Urine WBC 25-50 SEEN, Ur Squamous Epith Cells 0-5 SEEN, Urine Bacteria 1+, Urine Mucus 0 SEEN 12/14/22 19:11: Sodium 125 L, Potassium 4.7, Chloride 97 L, Carbon Dioxide 20.0 L, Anion Gap 8, BUN 22 H, Creatinine 1.07, Estim Creat Clear Calc 59.20, Est GFR (MDRD) Af Amer 88, Est GFR (MDRD) Non-Af 72, BUN/Creatinine Ratio 20.6 H, Glucose 134 H, Calcium 8.8 12/15/22 01:20: Sodium 126 L, Potassium 4.4, Chloride 100, Carbon Dioxide 18.0 L , Anion Gap 8, BUN 21 H, Creatinine 0.95, Estim Creat Clear Calc 66.68, Est GFR (MDRD) Af Amer 100, Est GFR (MDRD) Non-Af 83, BUN/Creatinine Ratio 22.1 H, Glucose 109 H, Calcium 8.4 L 12/15/22 05:58: WBC 6.8, RBC 3.03 L, Hgb 11.5 L, Hct 32.2 L, MCV 106.3 H, MCH 38.0 H, MCHC 35.7, RDW Std Deviation 50.9 H, RDW Coeff of Mo 13.0, Plt Count 87 L, MPV 9.8, Immature Gran % (Auto) 0.400, Neut % (Auto) 67.0, Lymph % (Auto) 17.6 L, [place] % (Auto) 12.8 H, Eos % (Auto) 1.8, Baso % (Auto) 0.4, Absolute Neuts (auto) 4.6, Absolute Lymphs (auto) 1.20, Nucleated RBC % 0 12/15/22 05:58: Sodium 127 L, Potassium 4.4, Chloride 103, Carbon Dioxide 18.0 L , Anion Gap 6, BUN 21 H, Creatinine 0.83, Estim Creat Clear Calc 76.32, Est GFR (MDRD) Af Amer 118, Est GFR (MDRD) Non-Af 97, BUN/Creatinine Ratio 25.4 H, Glucose 88, Calcium 8.3 L Micro: Microbiology 12/14/22 14:02 Urine, Clean Catch Urine Culture - Preliminary GPC Poss Enterococcus sp Physical Exam Narrative General: Alert, Oriented x3, Cooperative, No apparent distress HEENT: Atraumatic, PERRLA, EOMI, Normocephalic Oral: Moist Mucosa Neck: Supple, No JVD Lungs: Diminished, Normal air movement, No rhonchi, No wheeze, No rales Cardiovascular: Regular rate, Regular Rhythm, Normal S1, Normal S2, No murmurs Abdomen: Soft, Non Tender, Non-Distended, No Hepato-splenomegaly Extremities: Trace edema, Capillary Refill Less than 3 Seconds Skin: No rashes, No breakdown Musculoskeletal: No Tenderness to Palpation of Joints or Extremities Neurological: Cranial nerves II-XII grossly intact, Motor Exam 5/5 strength throughout, Sensory exam intact to light touch and pain Psych/Mental Status: Normal Affect, Appropriate Assessment & Plan Assessment/Plan (1) Chronic hyponatremia: (2) Acute hyponatremia: PLAN: Plan 1. Hypovolemic hyponatremia secondary to overdiuresis/enterococcal UTI ? He is on Lasix for cirrhosis ? Continue with IV fluids, will hold his Lasix and Aldactone ? His ammonia was slightly elevated so he is on lactulose as well at baseline ? His urine culture did appear to be consistent with UTI and a urine culture shows greater than 100,000 CFU's of possible Enterococcus ? Continue with antibiotics 2. 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 She states that he has an appointment in [place] on Saturday with hepatology ? We will continue with his lactulose ? Continue with statin 3. GERD ? Stable ? Continue with PPI 4. BPH ? Stable ? Continue to with Flomax and finasteride DVT: Lovenox Charges/Coding Visit Charges Inpatient E&M: 15472 Subs Hosp L2
[2022-12-15] MEDS: Atorvastatin Calcium 20 MG Tablet PO (21:57)
[2022-12-15] MEDS: Tamsulosin HCl 0.4 MG Capsule PO (21:57)
[2022-12-16 04:16] VITALS: BP 113/53; PULSE 62; RESP 18; TEMP 36.6; O2SAT 98
[2022-12-16 05:25] VITALS: BMI 28.4
[2022-12-16] MEDS: Enoxaparin 40 MG/0.4 ML Syringe SC (05:38)
[2022-12-16] MEDS: 0.9% Saline Lock 10 ML Syringe IV (05:38)
[2022-12-16 06:00] VITALS: BP 113/53; PULSE 62; RESP 18; TEMP 36.6; O2SAT 98
[2022-12-16 06:01] LABS: Absolute Lymphocyte Count 1.23 X10^3/uL (0.83-4.51); Absolute Neutrophil Count 3.2 X10^3/uL (2.0-7.7); Basophil# 0.03 X10^3/uL; Basophil% 0.5 % (0-1); Eosinophil# 0.14 X10^3/uL; Eosinophils% 2.5 % (0-5); Hematocrit 32.5 % (40-54); Hemoglobin 11.6 g/dL (13.0-16.5); Lymphocyte # 1.23 X10^3/ul (0.83-4.51); Lymphocyte % 22.3 % (19-41); Mean Corp Hgb Conc 35.7 g/dL (32-36); Mean Corpuscular Hgb 38.4 pg (27.0-32.0); Mean Corpuscular Volume 107.6 fL (80-94); Mean Platelet Vol. 10.7 fl (6.2-12.0); Monocyte# 0.85 X10^3/uL; Monocyte% 15.4 % (0-10); NRBC Flagged by Analyzer 0 % (0-5); Neutrophil # 3.22 X10^3/uL (2.7-7.7); Neutrophil % 58.6 % (47-70); POSITIVE COUNT YES; Platelet Count 83 K/mm3 (150-450); RBC Distribution Width CV 13.2 % (11.6-14.6); RBC Distribution Width SD 52.4 fl (35.1-43.9); Red Blood Count 3.02 M/mm3 (4.6-6.2); White Blood Count 5.5 K/mm3 (4.4-11.0)
[2022-12-16 06:26] LABS: ALB/GLOB Ratio 0.7 RATIO (0.9-2.4); AST(SGOT) 55 U/L (15-37); Alanine Aminotransfer ALT/SGPT 52 U/L (16-61); Albumin, Serum 2.5 g/dL (3.2-5.0); Alkaline Phosphatase 149 U/L (45-117); Anion Gap 6 (5-15); BUN 14 mg/dL (7-18); BUN/Creat Ratio 14.4 RATIO (10-20); Calcium,Total 8.4 mg/dL (8.5-10.1); Chloride 104 mmol/L (98-107); Creatinine, Serum 0.97 mg/dL (0.70-1.30); EST Glomerular Filtration Rate 81 mL/min (>60); Est Glom Filt Rate - Afr Amer 98 mL/min (>60); Globulin 3.7 g/dL (2.2-4.2); Glucose 96 mg/dL (74-106); Potassium 4.3 mmol/L (3.5-5.1); Protein, Total 6.2 g/dL (6.4-8.2); Sodium Level 131 mmol/L (136-145)
--- NOTE | 2022-12-16 08:04 | CPS ---
PT SLEEPING AT THIS TIME. SMI AND PEP ON HOLD
[2022-12-16 08:11] VITALS: BP 107/51; PULSE 68; RESP 16; TEMP 37; O2SAT 100
[2022-12-16] MEDS: Pantoprazole Sodium 40 MG Tablet PO (08:16)
[2022-12-16] MEDS: Lactulose 20 GM/30 ML UDC 10 GM PO (08:16)
[2022-12-16] MEDS: Multivitamins,Therapeutic Tablet 1 TABLET PO (08:16)
[2022-12-16] MEDS: Finasteride 5 MG Tablet PO (08:16)
[2022-12-16] MEDS: Ascorbic Acid 500 MG Tablet PO (08:17)
--- NOTE | 2022-12-16 09:50 | DCINST_ITS ---
Discharge Instructions Diet Discharge Diet: Low fat / Low cholesterol Activity Discharge Activity: Return to Normal Activity Dressing / Incision Call your doctor if you observe: Fever of 101 or Higher, Shortness of breath, Dizziness, Fainting spells, Swelling in the ankles, Chest pain and Increased palpitations (irregular heartbeat) Follow Up Care Test Results: Test results from this visit will be discussed in further detail at your follow- up appointment, if applicable. Discharge Plan Admission Admit Date/Time: 12/14/22 17:41 Attending Provider: Asad Elizondo Primary Care Provider: Dayne Fajardo Consulting Providers: Aamir Tenorio Instructions Additional Instructions / Restrictions: Follow-up with your PCP to obtain outpatient lab work and to monitor your sodium. This was likely due to overdiuresis and dehydration as you did improve with IV fluids. Discharge Orders/Prescriptions Prescriptions: New amoxicillin 500 mg capsule 500 mg PO TID 5 Days Qty: 15 0RF Continued ascorbic acid (vitamin C) 500 mg tablet 500 mg PO DAILY elderberry fruit 200 mg capsule 400 mg PO DAILY simvastatin 40 MG tablet 40 mg PO QHS Label Comments: cholesterol tamsulosin 0.4 MG capsule 0.4 mg PO QHS Label Comments: prostate finasteride 5 MG tablet 5 mg PO DAILY Label Comments: prostate multivitamin Tablet 1 tab PO DAILY pantoprazole 40 mg tablet,delayed release (DR/EC) 40 mg PO BID Label Comments: TAKE 1 TABLET BY MOUTH TWICE DAILY WITH MEALS lactulose 10 gram/15 mL solution 15 ml PO BID Held furosemide [Lasix] 40 mg Tablet 40 mg PO DAILY Hold Instructions: Resume on 12/18/22. spironolactone 100 mg Tablet 100 mg PO DAILY Hold Instructions: Resume on 12/18/22. Referrals / Follow Up: Dayne Fajardo MD [Primary Care Provider] - Within 1 Week Disposition Disposition (needs filled in before D/C Order can be placed): Home, Self Care
--- NOTE | 2022-12-16 10:36 | PCM.DC.SUM ---
Providers Date of Admission: 12/14/22 Primary Care Physician: Dr. Dayne Fajardo MD Reason For Visit: [facility] LABS Diagnosis Discharge Diagnosis (1) Chronic hyponatremia: Status: Chronic Code(s): E87.1 - Hypo-osmolality and hyponatremia (2) Acute hyponatremia: Status: Acute Code(s): E87.1 - Hypo-osmolality and hyponatremia Medications at Discharge Home Medications finasteride 5 mg tablet 5 mg PO DAILY prostate 12/31/15 simvastatin 40 mg tablet 40 mg PO QHS cholesterol 12/31/15 tamsulosin 0.4 mg capsule 0.4 mg PO QHS prostate 12/31/15 ascorbic acid (vitamin C) 500 mg tablet 500 mg PO DAILY supplement 01/12/22 elderberry fruit 200 mg capsule 400 mg PO DAILY supplement 01/12/22 furosemide 40 mg tablet (Lasix) 40 mg PO DAILY diuretic 10/27/22 spironolactone 100 mg tablet 100 mg PO DAILY diuretic 10/27/22 lactulose 10 gram/15 mL oral solution 15 ml PO BID BM 12/14/22 multivitamin 1 tab PO DAILY SUPPLEMENT 12/14/22 pantoprazole 40 mg tablet,delayed release 40 mg PO BID GERD 12/14/22 amoxicillin 500 mg capsule 500 mg PO TID 5 days #15 caps 12/16/22 Hospital Course Operations None Procedures None Summary of Care Provided Minutes Spent on Discharge: 37 Hospital Course: Per HPI: BASHIR HERRMANN, niranjan a 72 M was sent to ED for admission after found to have low sodium by PCP.? Patient was found to have sodium 123.? 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 Since then patient is on furosemide and spironolactone. Patient also has history of intermittent hepatic encephalopathy but currently is on baseline.? He is on lactulose.? For last 1 or 2 weeks, patient feels intermittent lightheaded and dizziness on standing and walking. Patient denies vomiting, diarrhea or external fluid loss. Patient was admitted in [place] about 3 weeks ago when he fell down, confused and encephalopathic and was treated with spironolactone. Hospital Course: 1. Hypovolemic hyponatremia secondary to overdiuresis/enterococcal UTI?72-year-old male with history of cirrhosis secondary to Carter and hyperlipidemia presents to the hospital with abnormal lab results with sodium of 123. This was likely due to his Lasix and Aldactone. He was started on normal saline and had improvement in his sodium to 131 on the day of discharge. His UA was also consistent with UTI and urine culture shows sensitive Enterococcus. He was started on Unasyn and will be discharged on amoxicillin 500 mg p.o. 3 times daily for 5 days. I do recommend holding his Lasix and Aldactone for few more days. 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 I discussed with him the plan for discharge today and he expressed understanding of the risk benefits of going home and would like to go home today. 2. Cirrhosis due to Carter, hyperlipidemia, GERD, BPH are all chronic medical conditions which complicate his care. His home medications were continued where appropriate Physical Exam Narrative General: Alert, Oriented x3, Cooperative, No apparent distress HEENT: Atraumatic, PERRLA, EOMI, Normocephalic Oral: Moist Mucosa Neck: Supple, No JVD Lungs: Diminished, Normal air movement, No rhonchi, No wheeze, No rales Cardiovascular: Regular rate, Regular Rhythm, Normal S1, Normal S2, No murmurs Abdomen: Soft, Non Tender, Non-Distended, No Hepato-splenomegaly Extremities: Trace edema, Capillary Refill Less than 3 Seconds Skin: No rashes, No breakdown Musculoskeletal: No Tenderness to Palpation of Joints or Extremities Neurological: Cranial nerves II-XII grossly intact, Motor Exam 5/5 strength throughout, Sensory exam intact to light touch and pain Psych/Mental Status: Normal Affect, Appropriate Medical Records Data Medical Nutrition Assessment Dietitian: Malnutrition Criteria Met Start: 12/15/22 15:00 Freq: Status: Active Protocol: Document 12/15/22 15:00 (Rec: 12/15/22 15:00 [id number]) Nutrition Malnutrition Evidence of Malnutrition Exists Yes Malnutrition (moderate): Acute Illness/Injury Evidenced By Suboptimal Energy Intake ( Moderate),Weight Loss ( Moderate) Clinical Problem Acute Disease or Injury Related Malnutrition Etiology moderate, acute malnutrition related to inadequate energy intake w/ acute illness Signs/Symptoms as evidenced by unintentional wt loss of 6.5#/3.5% wt loss x 2 weeks; estimated PO intake meeting <75% of estimated energy needs > 1 week Status Active Problem Recommendation Dietitian Recommendations/Changes continue regular diet as tolerated; will add 120mL ensure plus high protein 4x/ day w/ medpass given evidence of acute malnutrition Weight / BMI Weight Weight: 181 lb 7.047 oz Body Mass Index (BMI) 28.4 ABG / Lab / Microbiology Data Result Diagrams: 12/16/22 05:08 12/16/22 05:08 Laboratory: Laboratory Results - last 24 hr 12/16/22 05:08: WBC 5.5, RBC 3.02 L, Hgb 11.6 L, Hct 32.5 L, MCV 107.6 H, MCH 38.4 H, MCHC 35.7, RDW Std Deviation 52.4 H, RDW Coeff of Mo 13.2, Plt Count 83 L, MPV 10.7, Immature Gran % (Auto) 0.700, Neut % (Auto) 58.6, Lymph % (Auto) 22.3, [place] % (Auto) 15.4 H, Eos % (Auto) 2.5, Baso % (Auto) 0.5, Absolute Neuts (auto) 3.2, Absolute Lymphs (auto) 1.23, Nucleated RBC % 0 12/16/22 05:08: Sodium 131 L, Potassium 4.3, Chloride 104, Carbon Dioxide 21.0, Anion Gap 6, BUN 14, Creatinine 0.97, Estim Creat Clear Calc 65.30, Est GFR (MDRD) Af Amer 98, Est GFR (MDRD) Non-Af 81, BUN/Creatinine Ratio 14.4, Glucose 96, Calcium 8.4 L, Total Bilirubin 1.50 H, AST 55 H, ALT 52, Alkaline Phosphatase 149 H, Total Protein 6.2 L, Albumin 2.5 L, Globulin 3.7, Albumin/Globulin Ratio 0.7 L Microbiology: Microbiology 12/14/22 14:02 Urine, Clean Catch Urine Culture - Final Enterococcus faecalis D/C Instructions Discharge Diet: Low fat / Low cholesterol Call your doctor if you observe: Fever of 101 or Higher, Shortness of breath, Dizziness, Fainting spells, Swelling in the ankles, Chest pain and Increased palpitations (irregular heartbeat) Meaningful Use Info Meaningful Use Diagnoses (Choose all that apply): None applicable Discharge Plan Admission Admit Date/Time: 12/14/22 17:41 Attending Provider: Asad Elizondo Primary Care Provider: Dayne Fajardo Consulting Providers: Aamir Tenorio Instructions Additional Instructions / Restrictions: Follow-up with your PCP to obtain outpatient lab work and to monitor your sodium. This was likely due to overdiuresis and dehydration as you did improve with IV fluids. Discharge Orders/Prescriptions Prescriptions: New amoxicillin 500 mg capsule 500 mg PO TID 5 Days Qty: 15 0RF Continued ascorbic acid (vitamin C) 500 mg tablet 500 mg PO DAILY elderberry fruit 200 mg capsule 400 mg PO DAILY simvastatin 40 MG tablet 40 mg PO QHS Label Comments: cholesterol tamsulosin 0.4 MG capsule 0.4 mg PO QHS Label Comments: prostate finasteride 5 MG tablet 5 mg PO DAILY Label Comments: prostate multivitamin Tablet 1 tab PO DAILY pantoprazole 40 mg tablet,delayed release (DR/EC) 40 mg PO BID Label Comments: TAKE 1 TABLET BY MOUTH TWICE DAILY WITH MEALS lactulose 10 gram/15 mL solution 15 ml PO BID Held furosemide [Lasix] 40 mg Tablet 40 mg PO DAILY Hold Instructions: Resume on 12/18/22. spironolactone 100 mg Tablet 100 mg PO DAILY Hold Instructions: Resume on 12/18/22. Referrals / Follow Up: Dayne Fajardo MD [Primary Care Provider] - Within 1 Week Disposition Disposition (needs filled in before D/C Order can be placed): Home, Self Care Charges/Coding Visit Charges Inpatient E&M: 89897 Disch Hosp >30min
[2022-12-16 10:54] VITALS: O2SAT 99
== END 2022-12-16 13:48 | disposition home or self-care (01) | DRG 640 ==
LOC: ED 15:45 → PCU 19:25
PROVIDERS: Admitting Provider Internal Medicine; Emergency Provider Emergency Medicine; PCP Internal Medicine; Visit Provider Family Medicine
DX: E87.1 Hypo-osmolality and hyponatremia (principal); E43 Unspecified severe protein-calorie malnutrition; N39.0 Urinary tract infection, site not specified; K75.81 Nonalcoholic steatohepatitis (NASH); G47.33 Obstructive sleep apnea (adult) (pediatric); K21.9 Gastro-esophageal reflux disease without esophagitis; I10 Essential (primary) hypertension; E78.2 Mixed hyperlipidemia; E86.1 Hypovolemia; E86.0 Dehydration; B95.2 Enterococcus as the cause of diseases classified elsewhere; N40.0 Benign prostatic hyperplasia without lower urinary tract symptoms; T50.0X5A Adverse effect of mineralocorticoids and their antagonists, initial encounter; T50.1X5A Adverse effect of loop [high-ceiling] diuretics, initial encounter; Z68.28 Body mass index [BMI] 28.0-28.9, adult; Z79.899 Other long term (current) drug therapy
CPT/HCPCS: 36415; 80048; 80053; 81001; 82140; 83735; 84100; 85025; 85610; 87077; 87086; 87088; 87186; 93005; 94668; 97110; 97116; 97161; 97166; 99283; J7030; J7040; A4216; J0295

== ENCOUNTER 2023-01-08 15:53 | Emergency (ER) | payer MEDICARE, OTHER, SELFPAY ==
[2023-01-08 15:54] VITALS: BP 107/58; PULSE 92; RESP 14; TEMP 37.4; O2SAT 96
[2023-01-08 16:20] VITALS: BP 118/61; PULSE 74; RESP 22; O2SAT 96
[2023-01-08 16:21] VITALS: BMI 24.0
--- NOTE | 2023-01-08 17:27 | EKG12_ITS ---
Test Reason : Blood Pressure : / mmHG Vent. Rate : 077 BPM Atrial Rate : 077 BPM P-R Int : 166 ms QRS Dur : 080 ms QT Int : 404 ms P-R-T Axes : 014 -27 -03 degrees QTc Int : 457 ms Normal sinus rhythm Minimal voltage criteria for LVH, may be normal variant ( R in aVL ) Borderline ECG Confirmed by FEDERICA LUQUE, LAZARA ([id number]), editor at large CATHRYN MOULTON ([id number]) on 01/09/2023 11:06:01 AM Referred By: Confirmed By:LAZARA STALLWORTH MD
--- NOTE | 2023-01-08 17:28 | EX.ED.DYSGE1 ---
HPI History of Present Illness Chief Complaint: General Illness Narrative Narrative: 72-year-old male presenting with some confusion that started today. His states that they were outside at a picnic for 08 January and it was hot and she noticed he was not sweating very much. He states he is a little lightheaded. She states he is a little confused. He has a history of hyponatremia, hepatic encephalopathy. states he has a history of cirrhosis. She also states that Dr. Fajardo called in the other day and told him to hold his water pill and to increase his water intake. She is concerned he might be dehydrated. He has not had any falls but he does state he feels unsteady on his feet. No fevers or chills. Patient taking lactulose 3 times daily. [facility] Medical History Allergic rhinitis Chronic hyponatremia Colon polyps Dehydration Essential hypertension Heme + stool Hepatic cirrhosis Lung nodule Mixed hyperlipidemia Obesity (BMI 30-39.9) LENA (obstructive sleep apnea) Partial small bowel obstruction Prostatic hypertrophy, benign Sleep apnea Upper airway cough syndrome Home Medications finasteride 5 mg tablet 5 mg PO DAILY prostate 12/31/15 [History Last Taken 12/14/22] simvastatin 40 mg tablet 40 mg PO QHS cholesterol 12/31/15 [History Last Taken 12/13/22] tamsulosin 0.4 mg capsule 0.4 mg PO QHS prostate 12/31/15 [History Last Taken 12/13/22] ascorbic acid (vitamin C) 500 mg tablet 500 mg PO DAILY supplement 01/12/22 [History Last Taken 12/14/22] elderberry fruit 200 mg capsule 400 mg PO DAILY supplement 01/12/22 [History Last Taken 12/14/22] furosemide 40 mg tablet (Lasix) 40 mg PO DAILY diuretic 10/27/22 [History Last Taken 12/14/22] spironolactone 100 mg tablet 100 mg PO DAILY diuretic 10/27/22 [History Last Taken 12/14/22] lactulose 10 gram/15 mL oral solution 15 ml PO BID BM 12/14/22 [History Last Taken 12/14/22] multivitamin 1 tab PO DAILY SUPPLEMENT 12/14/22 [History Last Taken 12/14/22] pantoprazole 40 mg tablet,delayed release 40 mg PO BID GERD 12/14/22 [History Last Taken 12/14/22] amoxicillin 500 mg capsule 500 mg PO TID 5 days #15 caps 12/16/22 [Rx Last Taken Unknown] Allergy/AdvReac Type Severity Reaction Status Date / Time nabumetone Allergy Severe Rash Verified 01/08/23 15:54 lisinopril AdvReac Severe cough Verified 01/08/23 15:54 Family History Mother CVA (cerebral vascular accident) Father CHF (congestive heart failure) Brother Cancer Prostate Surgical History History of appendectomy History of eye surgery Social History Smoking Status: Never smoker alcohol intake: never substance use type: does not use caffeine: Yes Type: tea Number of servings: 2 ROS ROS ED Constitutional Constitutional ED: Denies chills or fever(s) Eyes Eyes: Denies change in vision ENT ENT ED: Denies rhinorrhea or sore throat Cardiovascular Cardiovascular: Denies chest pain or palpitations Respiratory/Chest Respiratory/Chest: Denies cough or dyspnea Gastrointestinal Gastrointestinal: Reports nausea; Denies abdominal pain or constipation Genitourinary Genitourinary ED: Denies dysuria or hematuria Musculoskeletal Musculoskeletal: Denies arthralgias Integumentary Denies abscess Neurologic Neurologic: Denies headache(s) Psychiatric Psychiatric: Denies anxiety or depression EXAM Physical Exam Const Vital Signs: 01/08/23 15:54 01/08/23 16:18 01/08/23 16:20 Temperature 99.3 F H Temperature Source Temporal Pulse Rate 92 74 Pulse Rate [Lying] Pulse Rate [Sitting (for 1 minute prior to obtaining)] Pulse Rate [Standing (for 1 minute prior to obtaining)] Respiratory Rate 14 22 H Respiratory Effort Normal Non-Labored Respiratory Pattern Normal Blood Pressure 107/58 L 118/61 Blood Pressure [Lying] Blood Pressure [Sitting (for 1 minute prior to obtaining)] Blood Pressure [Standing (for 1 minute prior to obtaining)] Blood Pressure Mean 74 80 Blood Pressure Mean [Lying] Blood Pressure Mean [Sitting (for 1 minute prior to obtaining)] Blood Pressure Mean [Standing (for 1 minute prior to obtaining)] Pulse Ox 96 96 Oxygen Delivery Method Room Air Room Air 01/08/23 17:55 01/08/23 18:33 01/08/23 21:00 Temperature 97.9 F Temperature Source Oral Pulse Rate 75 76 Pulse Rate [Lying] 76 Pulse Rate [Sitting (for 1 minute prior to obtaining)] 78 Pulse Rate [Standing (for 1 minute prior to obtaining)] 82 Respiratory Rate 21 H 23 H Respiratory Effort Respiratory Pattern Blood Pressure 114/53 L 105/62 Blood Pressure [Lying] 110/49 L Blood Pressure [Sitting (for 1 minute prior to obtaining)] 113/59 L Blood Pressure [Standing (for 1 minute prior to obtaining)] 112/58 L Blood Pressure Mean 73 76 Blood Pressure Mean [Lying] 69 Blood Pressure Mean [Sitting (for 1 minute prior to obtaining)] 77 Blood Pressure Mean [Standing (for 1 minute prior to obtaining)] 76 Pulse Ox 99 99 Oxygen Delivery Method Room Air Room Air 01/08/23 22:10 Temperature Temperature Source Pulse Rate 78 Pulse Rate [Lying] Pulse Rate [Sitting (for 1 minute prior to obtaining)] Pulse Rate [Standing (for 1 minute prior to obtaining)] Respiratory Rate 19 H Respiratory Effort Respiratory Pattern Blood Pressure 105/62 Blood Pressure [Lying] Blood Pressure [Sitting (for 1 minute prior to obtaining)] Blood Pressure [Standing (for 1 minute prior to obtaining)] Blood Pressure Mean Blood Pressure Mean [Lying] Blood Pressure Mean [Sitting (for 1 minute prior to obtaining)] Blood Pressure Mean [Standing (for 1 minute prior to obtaining)] Pulse Ox 100 Oxygen Delivery Method Positive well nourished General Appearance ED: NAD HEENT Reports moist mucous membranes Eyes PERRL and EOMs intact bilaterally Chest Wall inspection of chest normal Resp normal respiratory effort and clear to auscultation bilaterally Cardio regular rate and regular rhythm GI normal to inspection, nondistended, normoactive bowel sounds Back/Spine no CVA tenderness Neuro oriented x3 and CN's II-XII intact bilaterally Sensorium / Orientation: alert Motor Exam: general weakness Psych mental status grossly normal Skin no rashes or lesions noted and no wounds MDM MDM MDM Narrative Medical decision making narrative: Patient presenting with confusion and lightheadedness. Differential includes UTI, dehydration, hepatic encephalopathy, electrolyte abnormality, dehydration, acute coronary syndrome, pneumonia. CBC was obtained to assess white blood cell count, hemoglobin, platelets, differential. CMP to assess liver function, renal function, electrolytes, glucose, anion gap. Urinalysis obtained to assess for UTI. EKG was obtained to assess for dysrhythmia. High-sensitivity troponin and EKG were obtained to rule out ischemic and dysrhythmias. Chest x-ray to rule out pneumonia. CBC shows no leukocytosis with white blood cell count of 7.4. Hemoglobin stable at 12.2, platelets low at 96. Creatinine is elevated today at 1.38. Sodium slightly low at 129. Glucose is 129 without anion gap. Alkaline phosphatase 240, ammonia 100, bilirubin 2.3, direct bilirubin 0.66, AST 123, ALT 98, alkaline phosphatase 240. High-sensitivity troponin returned 8. Chest x-ray my interpretation shows no acute process. Urinalysis was negative for infection. Patient feeling better after 500 cc bolus of IV fluids. He states his lightheadedness is improved. I gave him lactulose as well. I spoke with a Dr. Kelly from [facility] initially who recommended to admit the patient for IV fluids and monitoring. I spoke with the hospitalist who declined admission. I then called back to the transfer line and I spoke to a Dr. Rivas at this point and since the patient was not going to be admitted she will send a message to Dr. Bowman who is GI doctor and recommended that we increase his lactulose which she is currently 3 times daily to 1 more time a day. Recommended close follow-up with his primary care as well and did want them to reach out to Dr. Myers via [facility] messaging. Discussed this with the patient and his and they are amenable to discharge. Return precautions discussed at length. Impression: 1. Lightheadedness 2. Hepatic encephalopathy 3. Hyponatremia 4. Dehydration Lab Data Attestation: I reviewed the patient's lab results. Labs: Laboratory Results - last 24 hr 01/08/23 01/08/23 16:35 18:57 WBC 7.4 RBC 3.13 L Hgb 12.2 L Hct 32.6 L MCV 104.2 H MCH 39.0 H MCHC 37.4 H RDW Std Deviation 52.9 H RDW Coeff of Mo 13.9 Plt Count 96 L MPV 11.5 Immature Gran % (Auto) 0.100 Neut % (Auto) 76.1 H Lymph % (Auto) 8.8 L [place] % (Auto) 14.0 H Eos % (Auto) 0.5 Baso % (Auto) 0.5 Absolute Neuts (auto) 5.6 Absolute Lymphs (auto) 0.65 L Nucleated RBC % 0 Sodium 129 L Potassium 4.7 Chloride 103 Carbon Dioxide 20.0 L Anion Gap 6 BUN 15 Creatinine 1.38 H Estim Creat Clear Calc 45.90 Est GFR (MDRD) Af Amer 65 Est GFR (MDRD) Non-Af 54 L BUN/Creatinine Ratio 10.9 Glucose 129 H Calcium 8.8 Total Bilirubin 2.30 H Direct Bilirubin 0.66 H AST 123 H ALT 98 H Alkaline Phosphatase 240 H Ammonia 100.0 H Troponin I High Sens 8 Total Protein 7.0 Albumin 2.8 L Globulin 4.2 Urine Color Yellow Urine Clarity Clear Urine pH 7.0 Ur Specific [place] 1.010 Urine Protein 15 H Urine Glucose (UA) Normal Urine Ketones Negative Urine Occult Blood Negative Urine Nitrite Negative Urine Bilirubin Negative Urine Urobilinogen 1 H Ur Leukocyte Esterase Negative Urine RBC 0 SEEN Urine WBC 0-5 SEEN Ur Squamous Epith Cells 0-5 SEEN Urine Bacteria 0 SEEN Urine Mucus 0 SEEN Radiography Diagnostic Testing: Clinical Impression(s) from Imaging Studies Chest X-Ray 01/08/23 18:05 IMPRESSION: No radiographic evidence of acute cardiopulmonary disease. Electronically Signed: Vamsi Burleson MD at 18:46 EDT , Discharge Plan Triage Chief Complaint: General Illness ED Provider: London Worley Dx/Rx/DC Orders Clinical Impression: Acute dehydration, Acute hepatic encephalopathy Instructions: Hepatic Encephalopathy, Dehydration Prescriptions: No Action ascorbic acid (vitamin C) 500 mg tablet 500 mg PO DAILY elderberry fruit 200 mg capsule 400 mg PO DAILY simvastatin 40 MG tablet 40 mg PO QHS Patient Comments: cholesterol tamsulosin 0.4 MG capsule 0.4 mg PO QHS Patient Comments: prostate finasteride 5 MG tablet 5 mg PO DAILY Patient Comments: prostate furosemide [Lasix] 40 mg Tablet 40 mg PO DAILY Hold Instructions: Resume on 12/18/22. spironolactone 100 mg Tablet 100 mg PO DAILY Hold Instructions: Resume on 12/18/22. multivitamin Tablet 1 tab PO DAILY pantoprazole 40 mg tablet,delayed release (DR/EC) 40 mg PO BID Patient Comments: TAKE 1 TABLET BY MOUTH TWICE DAILY WITH MEALS lactulose 10 gram/15 mL solution 15 ml PO BID amoxicillin 500 mg capsule 500 mg PO TID 5 Days Qty: 15 0RF Primary Care Provider: Dayne Fajardo Referrals: Dayne Fajardo MD [Primary Care Provider] - Disposition Disposition: Home, Self Care Discharge Date/Time: 01/08/23 22:11
[2023-01-08 17:54] LABS: Absolute Lymphocyte Count 0.65 X10^3/uL (0.83-4.51); Absolute Neutrophil Count 5.6 X10^3/uL (2.0-7.7); Basophil# 0.04 X10^3/uL; Basophil% 0.5 % (0-1); Eosinophil# 0.04 X10^3/uL; Eosinophils% 0.5 % (0-5); Hematocrit 32.6 % (40-54); Hemoglobin 12.2 g/dL (13.0-16.5); Lymphocyte # 0.65 X10^3/ul (0.83-4.51); Lymphocyte % 8.8 % (19-41); Mean Corp Hgb Conc 37.4 g/dL (32-36); Mean Corpuscular Volume 104.2 fL (80-94); Mean Platelet Vol. 11.5 fl (6.2-12.0); Monocyte# 1.03 X10^3/uL; NRBC Flagged by Analyzer 0 % (0-5); Neutrophil # 5.61 X10^3/uL (2.7-7.7); Neutrophil % 76.1 % (47-70); POSITIVE COUNT YES; Platelet Count 96 K/mm3 (150-450); RBC Distribution Width CV 13.9 % (11.6-14.6); RBC Distribution Width SD 52.9 fl (35.1-43.9); Red Blood Count 3.13 M/mm3 (4.6-6.2); White Blood Count 7.4 K/mm3 (4.4-11.0)
[2023-01-08 17:55] VITALS: BP 114/53; PULSE 75; RESP 21; TEMP 36.6; O2SAT 99
--- NOTE | 2023-01-08 18:05 | RAD_ITS ---
EXAM: XR CHEST, 1 VIEW CLINICAL INDICATION: near syncope TECHNIQUE: Frontal view of the chest. COMPARISON: 10/27/2022 FINDINGS: LUNGS AND PLEURAL SPACES: Unremarkable. No consolidation or edema. No pneumothorax. No effusion. HEART: Unremarkable. Cardiac silhouette not enlarged. MEDIASTINUM: Central airways and mediastinal contour are unremarkable. BONES/JOINTS: Unremarkable. SOFT TISSUES: Unremarkable. RAD/Chest 1 View (Portable) IMPRESSION: No radiographic evidence of acute cardiopulmonary disease. Electronically Signed: Vamsi Burleson MD at 18:46 EDT ,
[2023-01-08 18:20] LABS: AST(SGOT) 123 U/L (15-37); Alanine Aminotransfer ALT/SGPT 98 U/L (16-61); Albumin, Serum 2.8 g/dL (3.2-5.0); Alkaline Phosphatase 240 U/L (45-117); Anion Gap 6 (5-15); BUN 15 mg/dL (7-18); BUN/Creat Ratio 10.9 RATIO (10-20); Bilirubin, Direct 0.66 mg/dL (0.00-0.30); Calcium,Total 8.8 mg/dL (8.5-10.1); Chloride 103 mmol/L (98-107); Creatinine, Serum 1.38 mg/dL (0.70-1.30); EST Glomerular Filtration Rate 54 mL/min (>60); Est Glom Filt Rate - Afr Amer 65 mL/min (>60); Globulin 4.2 g/dL (2.2-4.2); Glucose 129 mg/dL (74-106); Potassium 4.7 mmol/L (3.5-5.1); Sodium Level 129 mmol/L (136-145); Troponin-I HS 8 pg/mL (3.0-78.0)
[2023-01-08 18:33] VITALS: BP 110/49; BP 112/58; BP 113/59; PULSE 76; PULSE 78; PULSE 82
[2023-01-08 19:03] LABS: Bacteria 0 SEEN /hpf (None Seen); Mucous, Urine 0 SEEN /hpf (<or=2+); Red Blood Cells-Urine 0 SEEN /hpf (0-5)
[2023-01-08] MEDS: Lactulose 20 GM/30 ML UDC PO (19:21)
[2023-01-08 20:14] LABS: Color, Urine Yellow (Yellow); Glucose, Dipstick Normal (Normal); Ketone-Dipstick Negative (Negative); Leukocyte Esterase-Dipstick Negative /ul (Negative); Nitrite-Dipstick Negative (Negative); Occult Blood-Urine Negative /ul (Negative); Protein-Dipstick 15 mg/dl (Negative); Urine Bilirubin Dipstick Negative (Negative); Urine Clarity Clear (Clear); Urine Urobilinogen 1 mg/dl (Normal)
[2023-01-08 20:21] LABS: Squamous Epithelial Cells - UA 0-5 SEEN /hpf (0-5); White Blood Cells 0-5 SEEN /hpf (0-5)
[2023-01-08 21:00] VITALS: BP 105/62; PULSE 76; RESP 23; O2SAT 99
--- NOTE | 2023-01-08 21:08 | PCM.HP.STD ---
HPI - General HPI Narrative BASHIR HERRMANN, is a 72 M who presents [facility] Medical History Allergic rhinitis Chronic hyponatremia Colon polyps Dehydration Essential hypertension Heme + stool Hepatic cirrhosis Lung nodule Mixed hyperlipidemia Obesity (BMI 30-39.9) LENA (obstructive sleep apnea) Partial small bowel obstruction Prostatic hypertrophy, benign Sleep apnea Upper airway cough syndrome Home Medications finasteride 5 mg tablet 5 mg PO DAILY prostate 12/31/15 [History Last Taken 12/14/22] simvastatin 40 mg tablet 40 mg PO QHS cholesterol 12/31/15 [History Last Taken 12/13/22] tamsulosin 0.4 mg capsule 0.4 mg PO QHS prostate 12/31/15 [History Last Taken 12/13/22] ascorbic acid (vitamin C) 500 mg tablet 500 mg PO DAILY supplement 01/12/22 [History Last Taken 12/14/22] elderberry fruit 200 mg capsule 400 mg PO DAILY supplement 01/12/22 [History Last Taken 12/14/22] furosemide 40 mg tablet (Lasix) 40 mg PO DAILY diuretic 10/27/22 [History Last Taken 12/14/22] spironolactone 100 mg tablet 100 mg PO DAILY diuretic 10/27/22 [History Last Taken 12/14/22] lactulose 10 gram/15 mL oral solution 15 ml PO BID BM 12/14/22 [History Last Taken 12/14/22] multivitamin 1 tab PO DAILY SUPPLEMENT 12/14/22 [History Last Taken 12/14/22] pantoprazole 40 mg tablet,delayed release 40 mg PO BID GERD 12/14/22 [History Last Taken 12/14/22] amoxicillin 500 mg capsule 500 mg PO TID 5 days #15 caps 12/16/22 [Rx Last Taken Unknown] Allergy/AdvReac Type Severity Reaction Status Date / Time nabumetone Allergy Severe Rash Verified 01/08/23 15:54 lisinopril AdvReac Severe cough Verified 01/08/23 15:54 Family History Mother CVA (cerebral vascular accident) Father CHF (congestive heart failure) Brother Cancer Prostate Surgical History History of appendectomy History of eye surgery Social History Smoking Status: Never smoker alcohol intake: never substance use type: does not use caffeine: Yes Type: tea Number of servings: 2 Vital Signs Vital Signs Vital Signs: 01/08/23 15:54 01/08/23 16:18 01/08/23 16:20 Temperature 99.3 F H Temperature Source Temporal Pulse Rate 92 74 Pulse Rate [Lying] Pulse Rate [Sitting (for 1 minute prior to obtaining)] Pulse Rate [Standing (for 1 minute prior to obtaining)] Respiratory Rate 14 22 H Respiratory Effort Normal Non-Labored Respiratory Pattern Normal Blood Pressure 107/58 L 118/61 Blood Pressure [Lying] Blood Pressure [Sitting (for 1 minute prior to obtaining)] Blood Pressure [Standing (for 1 minute prior to obtaining)] Blood Pressure Mean 74 80 Blood Pressure Mean [Lying] Blood Pressure Mean [Sitting (for 1 minute prior to obtaining)] Blood Pressure Mean [Standing (for 1 minute prior to obtaining)] Pulse Ox 96 96 Oxygen Delivery Method Room Air Room Air 01/08/23 17:55 01/08/23 18:33 Temperature 97.9 F Temperature Source Oral Pulse Rate 75 Pulse Rate [Lying] 76 Pulse Rate [Sitting (for 1 minute prior to obtaining)] 78 Pulse Rate [Standing (for 1 minute prior to obtaining)] 82 Respiratory Rate 21 H Respiratory Effort Respiratory Pattern Blood Pressure 114/53 L Blood Pressure [Lying] 110/49 L Blood Pressure [Sitting (for 1 minute prior to obtaining)] 113/59 L Blood Pressure [Standing (for 1 minute prior to obtaining)] 112/58 L Blood Pressure Mean 73 Blood Pressure Mean [Lying] 69 Blood Pressure Mean [Sitting (for 1 minute prior to obtaining)] 77 Blood Pressure Mean [Standing (for 1 minute prior to obtaining)] 76 Pulse Ox 99 Oxygen Delivery Method Room Air Weight Weight: 69.7 kg Body Mass Index (BMI) 24.0 Results Lab / Micro Data 01/08/23 16:35 01/08/23 16:35 Labs: Laboratory Results - last 24 hr 01/08/23 16:35: WBC 7.4, RBC 3.13 L, Hgb 12.2 L, Hct 32.6 L, MCV 104.2 H, MCH 39.0 H, MCHC 37.4 H, RDW Std Deviation 52.9 H, RDW Coeff of Mo 13.9, Plt Count 96 L, MPV 11.5, Immature Gran % (Auto) 0.100, Neut % (Auto) 76.1 H, Lymph % (Auto) 8.8 L, [place] % (Auto) 14.0 H, Eos % (Auto) 0.5, Baso % (Auto) 0.5, Absolute Neuts (auto) 5.6, Absolute Lymphs (auto) 0.65 L, Nucleated RBC % 0, Sodium 129 L, Potassium 4.7, Chloride 103, Carbon Dioxide 20.0 L, Anion Gap 6, BUN 15, Creatinine 1.38 H, Estim Creat Clear Calc 45.90, Est GFR (MDRD) Af Amer 65, Est GFR (MDRD) Non-Af 54 L, BUN/Creatinine Ratio 10.9, Glucose 129 H, Calcium 8.8, Total Bilirubin 2.30 H, Direct Bilirubin 0.66 H, AST 123 H, ALT 98 H, Alkaline Phosphatase 240 H, Ammonia 100.0 H, Troponin I High Sens 8, Total Protein 7.0, Albumin 2.8 L, Globulin 4.2 01/08/23 18:57: Urine Color Yellow, Urine Clarity Clear, Urine pH 7.0, Ur Specific [place] 1.010, Urine Protein 15 H, Urine Glucose (UA) Normal, Urine Ketones Negative, Urine Occult Blood Negative, Urine Nitrite Negative, Urine Bilirubin Negative, Urine Urobilinogen 1 H, Ur Leukocyte Esterase Negative, Urine RBC 0 SEEN, Urine WBC 0-5 SEEN, Ur Squamous Epith Cells 0-5 SEEN, Urine Bacteria 0 SEEN, Urine Mucus 0 SEEN Radiology Impression Chest X-Ray 01/08/23 18:05 IMPRESSION: No radiographic evidence of acute cardiopulmonary disease. Electronically Signed: Vamsi Burleson MD at 18:46 EDT ,
[2023-01-08 22:10] VITALS: BP 105/62; PULSE 78; RESP 19; O2SAT 100
== END 2023-01-08 22:11 | disposition home or self-care (01) ==
PROVIDERS: Emergency Provider Student in an Organized Health Care Education/Training Program; PCP Internal Medicine; Visit Provider Student in an Organized Health Care Education/Training Program
DX: R42 Dizziness and giddiness (principal); K76.82 Hepatic encephalopathy; E87.1 Hypo-osmolality and hyponatremia; E86.0 Dehydration; G47.33 Obstructive sleep apnea (adult) (pediatric)
CPT/HCPCS: 71045; 80048; 80076; 81001; 82140; 84484; 85025; 93005; 99284; J7040; A4216

== ENCOUNTER 2023-07-02 13:30 | Outpatient (RCR) | payer MEDICARE, OTHER, SELFPAY ==
--- NOTE | 2023-05-31 08:05 | HP.PTEVAL_ITS ---
Patient's Visit Information Visit Information Visit Information: BASHIR HERRMANN is a 72 year old M referred to Physical Therapy by JONAH LEE with a diagnosis of CRITICAL ILLNESS MYOPATHY. Date of Evaluation: 05/31/23 Physical Therapist: Bismark Castaneda PT, Cert MDT, OCS Visit Plan Frequency: 2x /Week Duration: 4 Weeks Plan: S/P LIVER TRANSPLANT 5# LIMITAION WITH LIFTING PT INTERVETIONS LE STRENGTHENING ,ENDURANCE PROGRAM ,BALANCE PRORGRAM AND FUNCTIONAL STRENGTHENING Subjective Subjective: This 72 y/o male presents to physical therapy with critical illness with liver transplant on 2023 at [facility] . Patient was in hospital until then to Rehab for ~ 10 days. Patient blood loss hospital stay thus needed 5 units RBC . Patient has multiple comorbities to influence condition. Patient Patient initially used FFW then no device . Patient had chela removed No 22. Patient feels weakness and unsteady with gait. Patient is able to to do ADLS except spouse does cooking and cleaning. Patient sleeping good. Patient lives in 1 story home with 3 steps. Patient sleeping okay. Denies paresthesia/tingling Patient condition affects QOL and function. Patient goals to get stronger. Precaution 5 # limitation with lifting SOCAIL: VOCATION: retired Objective Objective: POSTURE: mild forward posture GAIT: reciprocal pattern legs ER increase [place] slow jana NUERO: denies paresthesia/tingling STAIRS: one steps at time BALANCE: good- STAIRS: one step at time MMT: ( peak force) quads right 19.6 ,18.8 left , hamstrings right 18.6 ,left 16.9 ,hip flexion 15.2 right left 16.2 ,hip abduction right 13.2 ,left 12.2 Balance/Special Test Scores Functional Gait Assessment Score: 17 % Disability: 43.3400 CATSIB Score (Max score 120 seconds): 55 Lower Extremity Functional Score: 26 30 Second Chair Rise Test Seconds: 0 Goals Goal 1:: Patient to be I with HEP for strengthening Goal Time Frame: 4-6 Weeks Goal 2:: Patient to improve peak force quads/hams/hip by 10 # strength to improve function and stairs Goal Time Frame: 4-6 Weeks Goal 3:: Patient to improve CATSIBE by 5-10 points to improve balance Goal Time Frame: 4-6 Weeks Goal 4:: Patient to improve functional gait assessment score by 5 points to improve gait and balnce Goal Time Frame: 4-6 Weeks Goal 5:: Patient to improve LEFS core by 10 points to improve function Goal Time Frame: 4-6 Weeks Rehabilitation Potential Physical Therapy Diagnosis: This patient had critical illness with liver transplant with general weakness ,deconditioned with balance impairs ADLS and function thus benefit from skilled PT Rehabilitation Potential: Good Anticipated Interventions Patient/Client Instruction: Educate patient on: Condition and Plan of Care For the Purpose of:: To decrease pain, To increase ROM, To improve muscle performance and motor function, To improve ability to perform ADL's, To increase tolerance to activity/condition/position, To improve performance and independence with ADL's, To improve ability of physical actions for home/community/work/leisure, To improve endurance and To improve tolerance to ADL's Therapeutic Exercise to Include: Strength training, Power training, Endurance training, Balance training, Gait and locomotor training and Active ROM Comment: BLE STRENGTHNEING For the Purpose of:: To increase ROM, To improve muscle performance and motor function, To improve ability to perform ADL's, To increase tolerance to activity/condition/position, To increase flexibility/ROM, To improve endurance, To improve health and function and To improve tolerance to ADL's Text: Thank you for the opportunity to evaluate your patient. For Medicare and Medicare HMO plans, please review the plan of care and approve it. It will need to be FAXED BACK to us at [phone] for Medicare purposes. For Medicare only, by signing this I certify the plan of care. Please let me know if there are questions or concerns regarding this plan of care. Physician Signature: Date:
--- NOTE | 2023-07-02 13:33 | HP.PTDCSUM ---
Discharge Summary D/C summary: It has been my pleasure to treat BASHIR HERRMANN referred by JONAH LEE, with the diagnosis of CRITICAL ILLNESS MYOPATHY for a total of 10 visit(s). Discharge Date: Please see the following information for a summary of their discharge status. Subjective Subjective: Doing well ready for d/c Pain Surgical site liver: Pain Intensity (Out of 10): 0 Knees: Pain Intensity (Out of 10): 0 Overall Improvement % Improvement: 60 Objective Objective/Function: POSTURE: mild forward posture GAIT: reciprocal pattern NUERO: denies paresthesia/tingling BALANCE: good- STAIRS: one step a time MMT: ( peak force) quads right 40.6 ,46.8 left , hamstrings right 35.6 ,left 35, ,hip flexion 35.2 right left 36.2 ,hip abduction right 23.2 ,left 24.2 Goals Goal 1:: Patient to be I with HEP for strengthening Goal Progress: Goal Met Goal 2:: Patient to improve peak force quads/hams/hip by 10 # strength to improve function and stairs Goal Progress: Goal Met Goal 3:: Patient to improve CATSIBE by 5-10 points to improve balance Goal Progress: Goal Met Goal 4:: Patient to improve functional gait assessment score by 5 points to improve gait and balnce Goal Progress: Goal Met Goal 5:: Patient to improve LEFS core by 10 points to improve function Plan Plan: D/C D/C Information d/c sentence: If there are questions or concerns regarding this patient's physical therapy, please feel free to call me at [phone]. Thank you for the referral of this patient. Sincerely, Bismark Castaneda, PT, Cert MDT, OCS Balance/Gait/Functional tests Balance/Special Test Scores Functional Gait Assessment Score: 17 % Disability: 43.3400 CATSIB Score (Max score 120 seconds): 120 Lower Extremity Functional Score: 56 30 Second Chair Rise Test Seconds: 0 Improvement % Improvement: 60
--- NOTE | 2023-07-05 07:21 | HP.OTDCSUM ---
Discharge Summary D/C Summary: It has been my pleasure to treat BASHIR HERRMANN under orders from JONAH LEE, for the diagnosis of critical illness myopathy for a total of 6 visit(s). Please see the following information for a summary of their discharge status. Overall Improvement % Improvement: 75 Objective Objective/Function: Bicep curl test: (used 5# wt due to wt restrictions at time of eval) R 22; L 19 Dyn Embedded Software Development Engineer: R flex 55#, R ext 60#; L flex 55#, L ext 62# Pinch: R 16#; L 17# Pt arrived on time w/spouse; Pt would like to cancel Thurs appt. and be D/C after today's session. Pt is now D/C'd from PT per Therapist. pt has made good gains with his strength and with lifting precautions lifted pt has increased his IND with ADLs and IADLs. pt has met OT goals and is d.c at this time. Goals Patient Goals: Regain Strength, Improve Fine Motor Skills, Use Hand/Wrist/Arm Normally Again and Be More Independent in ADLS Goal:: pt will demo the ability to demo a increase in fet2 testing by 20# to increase pts ind. with ADls and IADls. pt will demo a increase in bilateral registered dental assistant strength by 15# or greater to increase pts ind. with ADLs and iADls by d.c Goal:: pt will demo increase legible handwriting by d/c Goal:: pt will report he has returned to perform light daily home mtg skills without fatigue by d.c Plan Plan: Continue POC: 4 weeks (1-2x week) D/C Information Discharge Comments: pt attended 6 OT session to increase his strength to perform ADLs and IADLs. pt has met OT goals and is d.c at this time. d/c sentence: If there are questions or concerns regarding this patient's occupational therapy, please fell free to call me at [phone]. Thank you for the referral of this patient. Sincerely, Ronit Hernandez, OTR/L, CHT
== END 2023-07-04 19:00 | disposition home or self-care (01) ==
LOC: OT 13:30
PROVIDERS: PCP Internal Medicine
DX: G72.81 Critical illness myopathy (principal)
CPT/HCPCS: 97110; 97162; 97166; 97530

== ENCOUNTER 2024-02-27 14:25 | Emergency (ER) | payer MEDICARE, OTHER, SELFPAY ==
[2024-02-27 14:25] VITALS: BP 137/97; PULSE 81; RESP 17; TEMP 36.1; O2SAT 98
[2024-02-27 17:04] VITALS: BP 131/72; PULSE 84; RESP 14; O2SAT 98
--- NOTE | 2024-02-27 17:05 | EDS_ITS ---
HPI History of Present Illness Chief Complaint: Constipation Informant: patient Onset/Context/Timing Onset: Days (2) Context: Gradual Onset Timing: Continuous Quality: Pressure Location: Abdomen Worsened by: Nothing Relieved by: Nothing Narrative Narrative: Patient presents with constipation that has been getting worse over the past 2 days. Patient states he feels pressure across his abdomen. Patient states nothing makes it better and nothing makes it worse. Patient states he has been feeling more shaky over the past couple days. Patient denies any fevers or chills. Patient admits to some nausea but denies any vomiting. Patient does admit to some chronic pain in his back. Patient has a history of liver transplant. [facility] Medical History (Updated 02/27/24 @ 22:[address] Mihai Mooney, DO) Chronic hyponatremia Sleep apnea Hepatic cirrhosis Essential hypertension Mixed hyperlipidemia Upper airway cough syndrome LENA (obstructive sleep apnea) Lung nodule Allergic rhinitis Obesity (BMI 30-39.9) Colon polyps Dehydration Heme + stool Prostatic hypertrophy, benign Partial small bowel obstruction Home Medications ?Medication ?Instructions ?Recorded ?Last Taken ?Type finasteride 5 mg tablet 5 mg PO DAILY prostate 12/31/15 12/14/22 History simvastatin 40 mg tablet 40 mg PO QHS cholesterol 12/31/15 12/13/22 History tamsulosin 0.4 mg capsule 0.4 mg PO QHS prostate 12/31/15 12/13/22 History multivitamin 1 tab PO DAILY SUPPLEMENT 12/14/22 12/14/22 History pantoprazole 40 mg tablet,delayed 40 mg PO DAILY GERD 03/29/23 Unknown History release docusate sodium 100 mg capsule 100 mg PO BID 07/10/23 Unknown History (Colace) levothyroxine 50 mcg tablet 50 mcg PO DAILY 07/10/23 Unknown History (Synthroid) magnesium 200 mg tablet 200 mg PO BID 07/10/23 Unknown History Allergy/AdvReac Type Severity Reaction Status Date / Time nabumetone Allergy Severe Rash Verified 02/27/24 14:25 lisinopril AdvReac Severe cough Verified 02/27/24 14:25 Family History (Reviewed 07/10/23 @ 09:52 by Trish Jalloh CHILDREN'S INSTITUTION ATTENDANT, CHILDREN'S INSTITUTION ATTENDANT-C) Mother CVA (cerebral vascular accident) Father CHF (congestive heart failure) Brother Cancer Prostate Surgical History (Updated 02/27/24 @ 22:[address] Mihai Mooney DO) Hx of liver transplant History of eye surgery History of appendectomy Social History Smoking Status: Never smoker alcohol intake: never substance use type: does not use caffeine: Yes Type: tea Number of servings: 2 ROS ROS ED Constitutional Constitutional ED: Denies chills or fever(s) Eyes Eyes: Denies blurry vision or change in vision ENT ENT ED: Denies rhinorrhea or sore throat Cardiovascular Cardiovascular: Denies chest pain or palpitations Respiratory/Chest Respiratory/Chest: Denies cough or dyspnea Gastrointestinal Gastrointestinal: Reports abdominal pain, constipation and nausea; Denies vomiting Genitourinary Genitourinary ED: Denies dysuria or hematuria Musculoskeletal Musculoskeletal: Reports back pain; Denies neck pain Integumentary Denies abscess or rash Neurologic Neurologic: Reports headache(s); Denies weakness Allergic/Immunologic Allergic/Immunologic ED: Denies mouth swelling or urticaria EXAM Physical Exam Const Vital Signs: 02/27/24 14:25 02/27/24 17:04 02/27/24 18:54 Temperature 97 F L Temperature Source Temporal Pulse Rate 81 84 72 Respiratory Rate 17 14 14 Blood Pressure 137/97 H 131/72 H 135/76 H Blood Pressure Mean 110 91 95 Pulse Ox 98 98 98 Oxygen Delivery Method Room Air Room Air Room Air 02/27/24 20:31 Temperature 98.7 F Temperature Source Oral Pulse Rate 82 Respiratory Rate 18 Blood Pressure 139/64 H Blood Pressure Mean 89 Pulse Ox 98 Oxygen Delivery Method Room Air Positive well nourished and well developed General Appearance ED: well developed and NAD HEENT Reports moist mucous membranes Neck supple and no JVD Cardio regular rate and regular rhythm GI non-distended Palpation: soft and tender epigastric, LLQ, RLQ, LUQ, RUQ, periumbilical and suprapubic; Negative for guarding or rebound tenderness present Neuro oriented x3, CN's II-XII intact bilaterally and no sensory deficits noted Sensorium / Orientation: alert Motor Exam: strength 5/5 throughout Psych mental status grossly normal MDM MDM MDM Narrative Medical decision making narrative: Differential diagnosis includes bowel obstruction, perforation, and constipation. Acute abdominal x-rays will be obtained to assess for bowel obstruction and perforation. Because of the x-ray reading of a small bowel obstruction, labs will be obtained. CBC will be obtained to assess for leukocytosis and anemia. Comprehensive metabolic profile will be obtained to assess for hepatic function, renal function, and electrolyte abnormality. Lipase will be obtained to assess for pancreatitis. CT scan of the abdomen and pelvis will be obtained to assess for bowel obstruction. Lab Data Attestation: I reviewed the patient's lab results. Lab results narrative: CBC was reviewed and showed a slight leukocytosis of 13.0. The remainder is within normal limits. Comprehensive metabolic profile was reviewed. And was essentially within normal limits. Lipase was reviewed and was normal. Labs: Laboratory Results - last 24 hr 02/27/24 18:55 WBC 13.0 H RBC 4.28 L Hgb 13.7 Hct 39.3 L MCV 91.8 MCH 32.0 MCHC 34.9 RDW Std Deviation 42.4 RDW Coeff of Mo 12.8 Plt Count 179 MPV 10.7 Immature Gran % (Auto) 0.400 Neut % (Auto) 88.1 H Lymph % (Auto) 7.1 L [place] % (Auto) 4.1 Eos % (Auto) 0.1 Baso % (Auto) 0.2 Absolute Neuts (auto) 11.5 H Absolute Lymphs (auto) 0.92 Nucleated RBC % 0 Sodium 134 L Potassium 4.5 Chloride 103 Carbon Dioxide 20.0 L Anion Gap 11 BUN 21 H Creatinine 1.10 Est GFR (MDRD) Af Amer 85 Est GFR (MDRD) Non-Af 70 BUN/Creatinine Ratio 19.1 Glucose 134 H Calcium 9.5 Total Bilirubin 0.60 AST 27 ALT 26 Alkaline Phosphatase 72 Total Protein 7.8 Albumin 4.3 Globulin 3.5 Albumin/Globulin Ratio 1.2 Lipase 31 Radiography Diagnostic Testing: Clinical Impression(s) from Imaging Studies Acute Abdomen Series 02/27/24 17:40 IMPRESSION: Small bowel obstruction. Electronically Signed: Tristen Mcknight MD at 18:36 EDT , Abdomen/Pelvis CT 02/27/24 18:40 IMPRESSION: Postoperative change. No obstruction. Electronically Signed: Tristen Mcknight MD at 21:14 EDT , Acute abdominal x-rays were obtained. There are 4 views. On my independent interpretation, there is a mild ileus. There is stool in the rectum and distal colon. Radiologist also interpreted the x-rays and felt that there could be a small bowel obstruction. CT scan of the abdomen pelvis was obtained. There are postoperative changes. There is no evidence of bowel obstruction. This was interpreted by the radiologist and was also independently reviewed by myself. Treatment and Re-Evaluation :: Patient was advised of his findings. Patient was given a soapsuds enema. Patient had a large bowel movement. Patient felt better on reevaluation. Patient was instructed to continue with laxatives as needed. Patient was instructed to follow-up with his primary care physician in 5 to 7 days. Patient understood and was agreeable with the plan. All questions were answered. Discharge Plan Triage Chief Complaint: Constipation ED Provider: Mihai Mooney Dx/Rx/DC Orders Clinical Impression: Constipation, History of liver transplant Instructions: ED Constipation (Adult) Prescriptions: No Action docusate sodium [Colace] 100 mg capsule 100 mg PO BID magnesium 200 mg tablet 200 mg PO BID levothyroxine [Synthroid] 50 mcg tablet 50 mcg PO DAILY simvastatin 40 MG tablet 40 mg PO QHS Patient Comments: cholesterol tamsulosin 0.4 MG capsule 0.4 mg PO QHS Patient Comments: prostate finasteride 5 MG tablet 5 mg PO DAILY Patient Comments: prostate multivitamin Tablet 1 tab PO DAILY pantoprazole 40 mg tablet,delayed release (DR/EC) 40 mg PO DAILY Patient Comments: TAKE 1 TABLET BY MOUTH TWICE DAILY WITH MEALS Primary Care Provider: Dayne Fajardo Referrals: Dayne Fajardo MD [Primary Care Provider] - 5-7 Days Print Language: [place] Disposition Disposition: Home, Self Care
--- NOTE | 2024-02-27 17:40 | RAD_ITS ---
STUDY: X-RAY - ACUTE ABDOMINAL SERIES REASON FOR EXAM: Male, 73 years old. Constipation TECHNIQUE: Single view of the chest. Supine, and erect view(s) of the abdomen were obtained. COMPARISON: None. FINDINGS: The lungs are clear and expanded. Normal size heart. Normal mediastinum and eva. Normal visualized pulmonary arteries. Normal visualized aortic arch and descending thoracic aorta. There are air and fluid dilated loops of the small intestine with a non-distended colon consistent with a small bowel obstruction. There is postoperative change in the upper abdomen. Normal visualized osseous structures. RAD/Acute Abdomen Inc Chest IMPRESSION: Small bowel obstruction. Electronically Signed: Tristen Mcknight MD at 18:36 EDT ,
--- NOTE | 2024-02-27 18:40 | CT_ITS ---
STUDY: CT ABDOMEN AND PELVIS WITH CONTRAST REASON FOR EXAM: Male, 73 years old. Constipation RADIATION DOSAGE (If Supplied By Facility): CTDIvol = ( 14.88 ) mGy, DLP = ( 1025.74 ) mGycm TECHNIQUE: Transaxial images were obtained from the dome of the diaphragm to the symphysis pubis without oral contrast. IV 100mL Isovue-370 was administered. Sagittal and coronal images were reconstructed. Individualized dose optimization techniques were used for this CT. COMPARISON: August 01, 2015 FINDINGS: There is left lower lung scarring or atelectasis. There are coronary artery and mitral annular calcifications. Normal liver. There are surgical clips in the gallbladder fossa consistent with a prior cholecystectomy. Normal spleen. Normal pancreas. Normal bilateral adrenal glands. There are 0.6 and 0.9 cm cysts of the right kidney. There is a 1.4 cm cyst of the left kidney. Normal visualized stomach. Normal small intestine. Normal colon. There is non-visualization of the appendix. There is diffuse atherosclerotic calcification of the abdominal aorta, without a demonstrated aneurysm. Normal inferior vena cava. Normal retroperitoneum. Normal urinary bladder. There is no free fluid in the abdomen or pelvis. Normal abdominal wall. There is degenerative change of the spine. CT/Abdomen/Pelvis W IV Cont ONLY IMPRESSION: Postoperative change. No obstruction. Electronically Signed: Tristen Mcknight MD at 21:14 EDT ,
[2024-02-27 18:54] VITALS: BP 135/76; PULSE 72; RESP 14; O2SAT 98
[2024-02-27 19:04] LABS: Absolute Lymphocyte Count 0.92 X10^3/uL (0.83-4.51); Absolute Neutrophil Count 11.5 X10^3/uL (2.0-7.7); Basophil# 0.02 X10^3/uL; Basophil% 0.2 % (0-1); Eosinophil# 0.01 X10^3/uL; Eosinophils% 0.1 % (0-5); Hematocrit 39.3 % (40-54); Hemoglobin 13.7 g/dL (13.0-16.5); Lymphocyte # 0.92 X10^3/ul (0.83-4.51); Lymphocyte % 7.1 % (19-41); Mean Corp Hgb Conc 34.9 g/dL (32-36); Mean Corpuscular Volume 91.8 fL (80-94); Mean Platelet Vol. 10.7 fl (6.2-12.0); Monocyte# 0.54 X10^3/uL; Monocyte% 4.1 % (0-10); NRBC Flagged by Analyzer 0 % (0-5); Neutrophil % 88.1 % (47-70); Platelet Count 179 K/mm3 (150-450); RBC Distribution Width CV 12.8 % (11.6-14.6); RBC Distribution Width SD 42.4 fl (35.1-43.9); Red Blood Count 4.28 M/mm3 (4.6-6.2)
[2024-02-27 19:19] LABS: ALB/GLOB Ratio 1.2 RATIO (0.9-2.4); AST(SGOT) 27 U/L (15-37); Alanine Aminotransfer ALT/SGPT 26 U/L (16-61); Albumin, Serum 4.3 g/dL (3.2-5.0); Alkaline Phosphatase 72 U/L (45-117); Anion Gap 11 (5-15); BUN 21 mg/dL (7-18); BUN/Creat Ratio 19.1 RATIO (10-20); Calcium,Total 9.5 mg/dL (8.5-10.1); Chloride 103 mmol/L (98-107); EST Glomerular Filtration Rate 70 mL/min (>60); Est Glom Filt Rate - Afr Amer 85 mL/min (>60); Globulin 3.5 g/dL (2.2-4.2); Glucose 134 mg/dL (74-106); Lipase 31 U/L (13-75); Potassium 4.5 mmol/L (3.5-5.1); Protein, Total 7.8 g/dL (6.4-8.2); Sodium Level 134 mmol/L (136-145)
[2024-02-27 20:31] VITALS: BP 139/64; PULSE 82; RESP 18; TEMP 37.1; O2SAT 98
[2024-02-27 22:30] VITALS: BP 135/77; PULSE 80; RESP 16; TEMP 36.6; O2SAT 96
== END 2024-02-27 22:31 | disposition home or self-care (01) ==
PROVIDERS: Emergency Provider Emergency Medicine; PCP Internal Medicine; Referring Provider Emergency Medicine; Visit Provider Emergency Medicine
DX: K59.00 Constipation, unspecified (principal); I10 Essential (primary) hypertension; E78.2 Mixed hyperlipidemia; G47.33 Obstructive sleep apnea (adult) (pediatric); Z79.899 Other long term (current) drug therapy
CPT/HCPCS: 74022; 74177; 80053; 83690; 85025; 99284; Q9967

== ENCOUNTER → 2024-07-20 | Outpatient (CLI) | payer MEDICARE, OTHER, SELFPAY | END | disposition home or self-care (01) | LOC: SL 19:41 | PROVIDERS: PCP Internal Medicine; Referring Provider Nurse Practitioner Acute Care; Visit Provider Nurse Practitioner Acute Care | DX: G47.33 Obstructive sleep apnea (adult) (pediatric) (principal) | CPT/HCPCS: 95811 ==

== ENCOUNTER → 2024-07-24 | Outpatient (CLI) | payer MEDICARE, OTHER, SELFPAY ==
--- NOTE | 2024-07-24 13:50 | CDU_ITS ---
Reason For Study: Possible CVA, left sided weakness Rt. Velocities/BP Lt. Velocities/BP Prox CCA 81.5/8.8 cm/sec. Prox CCA 104.7/10.2 cm/sec. Mid CCA 74/12.6 cm/sec. Mid CCA 75.3/12.6 cm/sec. Dist CCA 77.8/14.5 cm/sec. Dist CCA 124.7/18.8 cm/sec. Prox ICA 133.9/22.5 cm/sec. Prox ICA 86.3/17.6 cm/sec. Mid ICA 99.2/22.5 cm/sec. Mid ICA 108.4/20 cm/sec. Dist ICA 91.9/20.6 cm/sec. Dist ICA 84.5/17 cm/sec. Rt. ICA/CCA = 1.81. Lt. ICA/CCA = 1.44. Prox ECA 183.2/13.3 cm/sec. Prox ECA 230.5/10.7 cm/sec. Rt. Vert. 46.6/7.8 cm/sec. Lt. Vert. 45.6/9 cm/sec. Right Extracranial There is homogeneous, smooth atherosclerotic plaque noted in the right common carotid artery. There is heterogeneous, irregular atherosclerotic plaque noted in the right internal carotid artery. There is heterogeneous, irregular atherosclerotic plaque noted in the right external carotid artery. Antegrade flow is noted in the right vertebral artery. Left Extracranial There is heterogeneous, irregular atherosclerotic plaque noted in the left common carotid artery. There is heterogeneous, irregular atherosclerotic plaque noted in the left internal carotid artery. There is heterogeneous, irregular atherosclerotic plaque noted in the left external carotid artery. Antegrade flow is noted in the left vertebral artery. Procedure This is a Carotid Duplex examination using B-mode, color flow and specral Doppler. Carotid Duplex 31374. Exam performed in department. VL/Carotid Duplex Ultrasound Interpretation Summary Moderate (50-69%) stenosis right extracranial internal carotid. Mild (<50%) stenosis left extracranial internal carotid. Patent and antegrade vertebrals bilaterally. Ordering Physician: Ross Foster Referring Physician: Dayne Fajardo M.D. Performed By: Debbie Tobias RVT
== END | disposition home or self-care (01) ==
LOC: CVS 13:50
PROVIDERS: PCP Internal Medicine; Referring Provider Nurse Practitioner Family; Visit Provider Nurse Practitioner Family
DX: I65.22 Occlusion and stenosis of left carotid artery (principal)
CPT/HCPCS: 93880

== ENCOUNTER 2024-10-11 00:21 | Emergency (ER) | payer MEDICARE, OTHER, SELFPAY ==
[2024-10-11 00:23] VITALS: BP 148/75; PULSE 88; RESP 18; TEMP 36.8; O2SAT 100; BMI 30.4
--- NOTE | 2024-10-11 00:41 | CT_ITS ---
PROCEDURE: Noncontrast CT of the brain. 10/11/2024 REASON FOR EXAM: FALL/TRAUMA. Posterior laceration TECHNIQUE: Contiguous unenhanced axial CT images were obtained through the brain. Sagittal and coronal reformats were created. Coronal and Sagittal reconstruction series were provided. One or more dose reduction techniques were used (e.g., Automated exposure control, adjustment of the mA and/or kV according to patient size, use of iterative reconstruction technique. RADIATION DOSE SUMMARY: DLP: 846.73 mGycm COMPARISON: None available FINDINGS: Bones of the calvarium are intact. There is mild left posterior parietal soft tissue swelling/laceration. Paranasal sinuses and mastoid air cells clear. Extracranial soft tissues show no specific abnormality. Prominence of the cortical sulci and ventricular system, compatible with moderate brain parenchymal atrophy. No acute intracranial hemorrhage, extra-axial fluid collection, or midline shift. The chase-white matter differentiation is maintained. Basilar cisterns are clear. No acute abnormality of the posterior fossa. Mild patchy areas of decreased attenuation in the deep and periventricular white matter structures of the cerebral hemispheres. CT/Brain/Head without Contrast IMPRESSION: Moderate brain parenchymal atrophy and probable chronic small-vessel ischemic c hanges. No definite acute intracranial abnormality. If there are persistent symptoms or clinical concern, follow-up M RI or CT brain in 12-24 hours may be considered. Mild left posterior parietal soft tissue swelling/laceration, without underlyin g skull fracture. Reading [facility]
--- NOTE | 2024-10-11 00:51 | EDS_ITS ---
HPI HPI - Fall History of Present Illness Chief Complaint: Laceration Informant: patient and spouse/S.O. Narrative Narrative: 74-year-old male was in his family room sitting watching TV, he got up to go to bed and just as he got up lost his footing/balance and fell backwards hitting his head on the corner of a coffee table sustaining a laceration. Mild headache. Takes aspirin no anticoagulants or other antiplatelets. No loss of consciousness. No nausea or vomiting. Denies any other pain or injury. Able to stand afterwards without difficulty. Denies any prodromal symptoms such as dizziness/vertigo, lightheadedness. [facility] Medical History H/O Mohs micrographic surgery for skin cancer Chronic hyponatremia Sleep apnea Hepatic cirrhosis Essential hypertension Mixed hyperlipidemia Upper airway cough syndrome LENA (obstructive sleep apnea) Lung nodule Allergic rhinitis Obesity (BMI 30-39.9) Colon polyps Dehydration Heme + stool Prostatic hypertrophy, benign Partial small bowel obstruction Home Medications ?Medication ?Instructions ?Recorded ?Last Taken ?Type multivitamin 1 tab PO DAILY SUPPLEMENT 12/14/22 History aspirin 81 mg tablet,delayed 81 mg PO QDAY 06/25/24 Un known History release (Adult Low Dose Aspirin) levothyroxine 75 mcg tablet 75 mcg PO QDAY 06/25/24 Un known History rosuvastatin 20 mg tablet 20 mg PO QHS 06/25/24 Unknow n History tacrolimus 1 mg capsule, 1 mg PO BID 06/25/24 Unknown History immediate-release nifedipine 60 mg tablet,extended 60 mg PO QDAY 5 Unknown History release tamsulosin 0.4 mg capsule 0.4 mg PO QHS 10/09/24 Unkno wn History Allergy/AdvReac Type Severity Reaction Status Date / Time nabumetone Allergy Severe Rash Verified 10/11/24 00:22 lisinopril AdvReac Severe cough Verified 10/11/24 00:22 Family History Mother CVA (cerebral vascular accident) Father CHF (congestive heart failure) Brother Cancer Prostate Surgical History History of bilateral cataract extraction (~09/2023) History of prostate surgery Hx of liver transplant History of eye surgery History of appendectomy Social History Smoking Status: Never smoker alcohol intake: never substance use type: does not use caffeine: Yes Type: tea Number of servings: 2 ROS ROS ED Constitutional Constitutional ED: Denies chills or fever(s) Eyes Eyes: Denies change in vision or diplopia ENT ENT ED: Denies ear pain, epistaxis, facial pain or rhinorrhea Cardiovascular Cardiovascular: Denies chest pain or palpitations Respiratory/Chest Respiratory/Chest: Denies cough or dyspnea Gastrointestinal Gastrointestinal: Denies abdominal pain, diarrhea, melena, nausea or vomiting Genitourinary Genitourinary ED: Denies dysuria or hematuria Musculoskeletal Musculoskeletal: Denies back pain, extremity pain or neck pain Integumentary Reports laceration; Denies abscess, Abrasions or rash Neurologic Neurologic: Reports headache(s); Denies confusion, paresthesias or weakness EXAM Physical Exam Const Vital Signs: 10/11/24 00:23 Temperature 98.2 F Temperature Source Temporal Pulse Rate 88 Respiratory Rate 18 Blood Pressure 148/75 H Blood Pressure Mean 99 Pulse Ox 100 Oxygen Delivery Method Room Air Positive well nourished and well developed General Appearance ED: well developed and NAD HEENT Reports TM's clear and nasal mucous membranes and turbinates normal HEENT Narrative: No Dumas sign, no raccoon eyes, no CSF otorhinorrhea, no hemotympanum. Posterior occipital hematoma without crepitance or depression with an associated relatively linear macerated 2.5 cm laceration with mild bleeding. No other signs of HEENT trauma. atraumatic Face and Sinus: Negative for facial tenderness Tympanic Membrane ED: Yes TM's clear Eyes PERRL and EOMs intact bilaterally Eyes Narrative: Disconjugate gaze, baseline for him per patient and significant other. Visual Acuity: other Other Details: no entrapment or pain with extraocular movements Neck full ROM and supple General: Negative for tenderness Chest Wall inspection of chest normal and palpation of chest normal Chest: symmetrical chest wall rise; Negative for crepitus or tenderness Resp normal respiratory effort and clear to auscultation bilaterally Percussion: other equal BS bilat Cardio no murmurs Rate: regular rate Rhythm: regular rhythm GI normal to inspection, nondistended, normoactive bowel sounds, soft to palpation and non-tender Back/Spine normal ROM Cervical Spine: Negative for cervical spine tenderness Thoracic Spine / Upper Back: Negative for thoracic spinal tenderness Lumbar Spine / Lower Back: Negative for lumbar spinal tenderness Extremity normal to inspection and full ROM General Extremety ED: Negative for tenderness Neuro oriented x3, CN's II-XII intact bilaterally, moves all extremities, no focal motor deficits and no sensory deficits noted Faviola Coma Scale: document GCS findings Spontaneous Obeys Commands Oriented 15 Sensorium / Orientation: awake and alert Psych mental status grossly normal and thought process normal Skin no wounds Lesions: no lesions Rashes: no rashes MDM MDM MDM Narrative Medical decision making narrative: CT of the head was obtained in order to rule out intracranial injury, I reviewed the images and report which I agree with, negative for anything acute. Laceration was anesthetized locally irrigated/cleansed and repaired with ramona see the procedure note. He is ambulatory and stable for discharge home with appropriate discharge instructions. Radiography Diagnostic Testing: Clinical Impression(s) from Imaging Studies Brain CT 10/11/24 00:41 IMPRESSION: Moderate brain parenchymal atrophy and probable chronic small-vessel ischemic changes. No definite acute intracranial abnormality. If there are persistent symptoms or clinical concern, follow-up MRI or CT brain in 12-24 hours may be considered. Mild left posterior parietal soft tissue swelling/laceration, without underlying skull fracture. Reading [facility] Procedures Lacerations Occipital scalp: Length: 2.5 cm Depth: Sub Q Shape: Linear Prep: Sterile Conditions and Chlorhexadine Laceration repair: Irrigated, Lidocaine with epi (3cc, 1%), Local and Skin sutures (ramona) Irrigated (ml): 50 Number of Sutures/Ramona: 4 Discharge Plan Triage Chief Complaint: Laceration ED Provider: Tristen Sanford Dx/Rx/DC Orders Clinical Impression: Occipital scalp laceration, Closed head injury without loss of consciousness Instructions: ED Laceration Scalp Stitches or [place] Prescriptions: Continued levothyroxine 75 mcg tablet 75 mcg PO QDAY rosuvastatin 20 mg tablet 20 mg PO QHS tacrolimus 1 mg capsule 1 mg PO BID aspirin [Adult Low Dose Aspirin] 81 mg tablet,delayed release (DR/EC) 81 mg PO QDAY nifedipine 60 mg tablet extended release 60 mg PO QDAY tamsulosin 0.4 mg capsule 0.4 mg PO QHS multivitamin Tablet 1 tab PO DAILY Primary Care Provider: Dayne Fajardo Referrals: Dayne Fajardo MD [Primary Care Provider] - 7 Days for suture removal Print Language: Persian Disposition Disposition: Home, Self Care
[2024-10-11] MEDS: Lidocaine 1% /Epi 1:100 (20ml) 20 ML Vial INFILT (01:20)
== END 2024-10-11 01:41 | disposition home or self-care (01) ==
PROVIDERS: Emergency Provider Emergency Medicine; PCP Internal Medicine; Visit Provider Emergency Medicine
DX: S01.01XA Laceration without foreign body of scalp, initial encounter (principal); K74.60 Unspecified cirrhosis of liver; Z94.4 Liver transplant status; W01.190A Fall on same level from slipping, tripping and stumbling with subsequent striking against furniture, initial encounter; Y92.008 Other place in unspecified non-institutional (private) residence as the place of occurrence of the external cause; I10 Essential (primary) hypertension; E78.2 Mixed hyperlipidemia; G47.33 Obstructive sleep apnea (adult) (pediatric); Z79.82 Long term (current) use of aspirin; Z79.899 Other long term (current) drug therapy
CPT/HCPCS: 12001; 70450; 99283

== ENCOUNTER 2024-10-16 21:16 | Emergency (ER) | payer MEDICARE, OTHER, SELFPAY ==
[2024-10-16 21:17] VITALS: BP 140/65; PULSE 83; RESP 24; TEMP 36.9; O2SAT 98
--- NOTE | 2024-10-16 21:44 | CT_ITS ---
PROCEDURE: ABDOMEN/PELVIS W IV CONT ONLY 10/16/2024 REASON FOR EXAM: ABDOMINAL PAIN TECHNIQUE: Abdomen and pelvis CT with intravenous contrast. Coronal and Sagittal reconstruction series were provided. PATIENT PREPARATION: Per protocol ORAL CONTRAST TYPE: None. AMOUNT: mL CONTRAST: 99 cc Isovue 370 intravenous One or more dose reduction techniques were used (e.g., Automated exposure control, adjustment of the mA and/or kV according to patient size, use of iterative reconstruction technique. RADIATION DOSE SUMMARY: CTDlvol: 14.43 mGy DLP: 734.68 mGycm COMPARISON: None available FINDINGS: Dependent basilar atelectasis. The liver, adrenal glands, kidneys, pancreas and spleen appear within limits. Incidental small left cortical renal cysts. Status post cholecystectomy with several surgical clips at the domenic hepatis/right upper quadrant, correlate with history. Dilated small bowel leading to a gradual transition in the right mid abdomen to distal nondilated small bowel consistent with a developing or partial small bowel obstruction. No free air, wall thickening or significant appearing mesenteric stranding identified at this time. Bubbly appearance to fluid containing dilated small bowel in the right lower abdomen/pelvis for example axial 90 and sagittal 87 which may represent air mixed in with fluid and does not appear clearly at the bowel wall and appears more adjacent to folds to definitely suggest pneumatosis at this time. No associated wall thickening or mesenteric stranding. No portal venous gas identified. The appendix is not identified, no secondary signs. No free fluid. Aortoiliac atherosclerotic change. No adenopathy. The bladder appears within limits. The prostate appears unremarkable. Multilevel spondylosis/discogenic change. CT/Abdomen/Pelvis W IV Cont ONLY IMPRESSION: Dilated small bowel leading to a gradual transition in the right mid abdomen to distal nondilated small bowel consistent with a developing or partial small bowel obstruction, possible adhesion. No free air, wall thickening or significant appearing mesenteric stranding iden tified at this time. Bubbly appearance to fluid containing dilated small bowel in the right lower ab domen/pelvis for example axial 90 and sagittal 87 which may represent air mixed in with fluid and does not appear clearly at the bowel wall and appears more adjacent to folds to definitely suggest pneumatosis at this time. No associated wall thickening or m esenteric stranding. No portal venous gas identified. Reading Location: [facility]
--- NOTE | 2024-10-16 21:44 | EX.ED.DYSGE1 ---
HPI History of Present Illness Chief Complaint: General Illness Detail of Chief Complaint: Nausea vomiting diarrhea and abdominal pain Informant: patient and family Narrative Narrative: Patient presents to the emergency department with nausea abdominal pain. Patient states initially started with vomiting 3 days ago. Initially just did not feel well 2 days prior to that. Diarrhea started after the vomiting. He was seen by his primary care physician yesterday and given antinausea medication so that has improved. Patient states the diarrhea also slowed down since he is not eating or drinking very much. Complains of diffuse abdominal pain. Patient states that he had a liver transplant in 2022. He has been compliant with his medications. Patient complains of bodyaches. He said slight cough. [facility] Medical History H/O Mohs micrographic surgery for skin cancer Chronic hyponatremia Sleep apnea Hepatic cirrhosis Essential hypertension Mixed hyperlipidemia Upper airway cough syndrome LENA (obstructive sleep apnea) Lung nodule Allergic rhinitis Obesity (BMI 30-39.9) Colon polyps Dehydration Heme + stool Prostatic hypertrophy, benign Partial small bowel obstruction Home Medications ?Medication ?Instructions ?Recorded ?Last Taken ?Type multivitamin 1 tab PO DAILY SUPPLEMENT 12/14/22 12/14/22 History aspirin 81 mg tablet,delayed 81 mg PO QDAY 06/25/24 Unknown History release (Adult Low Dose Aspirin) levothyroxine 75 mcg tablet 75 mcg PO QDAY 06/25/24 Unknown History rosuvastatin 20 mg tablet 20 mg PO QHS 06/25/24 Unknown History tacrolimus 1 mg capsule, 1 mg PO BID 06/25/24 Unknown History immediate-release nifedipine 60 mg tablet,extended 60 mg PO QDAY 10/09/24 Unknown History release tamsulosin 0.4 mg capsule 0.4 mg PO QHS 10/09/24 Unknown History Allergy/AdvReac Type Severity Reaction Status Date / Time nabumetone Allergy Severe Rash Verified 10/11/24 00:22 lisinopril AdvReac Severe cough Verified 10/11/24 00:22 Family History Mother CVA (cerebral vascular accident) Father CHF (congestive heart failure) Brother Cancer Prostate Surgical History History of bilateral cataract extraction (~09/2023) History of prostate surgery Hx of liver transplant History of eye surgery History of appendectomy Social History Smoking Status: Never smoker alcohol intake: never substance use type: does not use caffeine: Yes Type: tea Number of servings: 2 ROS ROS ED Review of Systems ROS Unobtainable: other Constitutional Constitutional ED: Reports lethargy; Denies chills, fever(s), sweats or weight loss Eyes Eyes: Denies blurry vision, change in vision or diplopia ENT ENT ED: Denies rhinorrhea or sore throat Cardiovascular Cardiovascular: Denies chest pain, orthopnea or racing heartbeat Respiratory/Chest Respiratory/Chest: Reports cough; Denies dyspnea, dyspnea on exertion, orthopnea or sputum Gastrointestinal Gastrointestinal: Reports abdominal pain, diarrhea, nausea and vomiting Genitourinary Genitourinary ED: Denies dysuria, hematuria or urinary frequency Musculoskeletal Musculoskeletal: Reports myalgias; Denies arthralgias, back pain or neck pain Integumentary Denies abscess, Abrasions or rash Neurologic Neurologic: Denies headache(s) or weakness Psychiatric Psychiatric: Denies anxiety, depression or suicidal thoughts Endocrine Endocrinology: Denies polydipsia, polyphagia or polyuria Hematologic/Lymphatic Hematologic/Lymphatic: Denies easy bleeding, easy bruising or lymphadenopathy Allergic/Immunologic Allergic/Immunologic ED: Denies mouth swelling, tongue swelling or urticaria EXAM Physical Exam Const Vital Signs: 10/16/24 21:17 10/16/24 23:16 Temperature 98.4 F Temperature Source Oral Pulse Rate 83 82 Respiratory Rate 24 H 19 H Blood Pressure 140/65 H Blood Pressure Mean 90 Pulse Ox 98 98 Oxygen Delivery Method Room Air Room Air Positive well nourished and well developed General Appearance ED: well developed and NAD HEENT Reports TM's clear and moist mucous membranes normocephalic and atraumatic; Negative for trauma or tenderness Tympanic Membrane ED: Yes TM's clear Eyes PERRL and EOMs intact bilaterally General Eye ED: Negative for pale conjunctiva or scleral icterus Neck no lymphadenopathy, supple and no JVD General: Negative for tenderness Chest Wall inspection of chest normal and palpation of chest normal Chest: Negative for tenderness Resp normal respiratory effort and clear to auscultation bilaterally Effort and Inspection: Negative for respiratory distress or pain with movement Auscultation: Negative for rhonchi, wheezes or diminished lung sounds Cardio regular rate, regular rhythm, S1 normal heart sound, S2 normal heart sound and no murmurs Peripheral Pulses: pulses 2+ throughout GI normal to inspection, nondistended, normoactive bowel sounds, soft to palpation, non-distended and no masses GI Narrative: Mild diffuse tenderness. There is no rebound, rigidity, or peritoneal signs. No mass palpated. Back/Spine no CVA tenderness and no thoracic nor lumbar tenderness Extremity normal to inspection General Extremety ED: Negative for edema General Extremity: Negative for edema Neuro oriented x3, CN's II-XII intact bilaterally, no sensory deficits noted and gait normal Sensorium / Orientation: awake, alert, oriented to person, oriented to place and oriented to time Motor Exam: strength 5/5 throughout and strength abnormal Psych mental status grossly normal Skin no rashes or lesions noted and no wounds MDM MDM MDM Narrative Medical decision making narrative: Patient presents with vomiting diarrhea and abdominal pain. Clinically looks well and nontoxic appearing. IV line established. CBC with differential obtained showed a normal white count of 8.6 with hemoglobin 13.7 and platelet count of 181. Chemistries showed sodium 140 with potassium 2.1 and chloride 118. Calcium was depressed at 5.3 and lactate was less than 1. Corrected calcium was 6.5. I did give patient potassium chloride IV as well as calcium chloride IV. Patient had a liter normal saline given. CT scan of abdomen pelvis ordered and results are pending. Care of patient turned over to evening physician awaiting CT results and final disposition although I feel patient will likely require admission for electrolyte abnormality correction. Lab Data Attestation: I reviewed the patient's lab results. Labs: Laboratory Results - last 24 hr 10/16/24 10/16/24 10/16/24 22:29 22:29 22:45 WBC Cancelled Corrected WBC Cancelled RBC Cancelled Hgb Cancelled Hct Cancelled MCV Cancelled MCH Cancelled MCHC Cancelled RDW Std Deviation Cancelled RDW Coeff of Mo Cancelled Plt Count Cancelled MPV Cancelled Immature Gran % (Auto) Cancelled Neut % (Auto) Cancelled Lymph % (Auto) Cancelled Charles % (Auto) Cancelled Eos % (Auto) Cancelled Baso % (Auto) Cancelled Absolute Neuts (auto) Cancelled Absolute Lymphs (auto) Cancelled Total Counted Cancelled Neutrophils % (Manual) Cancelled Band Neutrophils % Cancelled Lymphocytes % (Manual) Cancelled Monocytes % (Manual) Cancelled Eosinophils % (Manual) Cancelled Basophils % (Manual) Cancelled Metamyelocytes % Cancelled Myelocytes % Cancelled Promyelocytes % Cancelled Blast Cells % Cancelled Plasma Cell % (Manual) Cancelled Other Cells % Cancelled Nucleated RBC % Cancelled Nucleated RBCs/100 WBC Cancelled Differential Comment Cancelled Diff Path Review Cancelled Hypersegmented Neuts Cancelled Atypical Lymphocytes Cancelled Reactive Lymphocytes Cancelled Smudge Cells Cancelled Toxic Granulation Cancelled Toxic Vacuolation Cancelled Dohle Bodies Cancelled Tremayne Rods Cancelled Platelet Estimate Cancelled Plt Morphology Comment Cancelled RBC Morphology Cancelled Cancelled Polychromasia Cancelled Hypochromasia Cancelled Basophilic Stippling Cancelled Anisocytosis Cancelled Microcytosis Cancelled Macrocytosis Cancelled Spherocytes Cancelled Sickle Cells Cancelled Target Cells Cancelled Tear Drop Cells Cancelled Ovalocytes Cancelled Stomatocytes Cancelled Sandy-Redbird Smith Bodies Cancelled Deidra Cells Cancelled Bite Cells Cancelled Crenated Cell Cancelled Acanthocytes (Spur) Cancelled Rouleaux Cancelled Schistocytes Cancelled Sodium 140 Potassium 2.1 L* Chloride 118 H Carbon Dioxide 12.3 L Anion Gap 10 BUN 24 H Creatinine 0.56 L Est GFR (MDRD) Non-Af 104 BUN/Creatinine Ratio 43.2 H Glucose 104 H Lactic Acid < 1.0 Calcium 5.3 L* Total Bilirubin 0.23 AST 16 ALT 7 Alkaline Phosphatase 33 L Total Protein 4.1 L Albumin 2.5 L Globulin 1.6 L Albumin/Globulin Ratio 1.5 10/16/24 23:03 WBC 8.6 Corrected WBC RBC 4.15 L Hgb 13.7 Hct 37.7 L MCV 90.8 MCH 33.0 H MCHC 36.3 H RDW Std Deviation 42.4 RDW Coeff of Mo 12.8 Plt Count 181 MPV 10.4 Immature Gran % (Auto) 0.200 Neut % (Auto) 72.6 H Lymph % (Auto) 14.6 L Charles % (Auto) 12.4 H Eos % (Auto) 0.0 Baso % (Auto) 0.2 Absolute Neuts (auto) 6.3 Absolute Lymphs (auto) 1.26 Total Counted Neutrophils % (Manual) Band Neutrophils % Lymphocytes % (Manual) Monocytes % (Manual) Eosinophils % (Manual) Basophils % (Manual) Metamyelocytes % Myelocytes % Promyelocytes % Blast Cells % Plasma Cell % (Manual) Other Cells % Nucleated RBC % 0 Nucleated RBCs/100 WBC Differential Comment Diff Path Review Hypersegmented Neuts Atypical Lymphocytes Reactive Lymphocytes Smudge Cells Toxic Granulation Toxic Vacuolation Dohle Bodies Tremayne Rods Platelet Estimate Plt Morphology Comment RBC Morphology Polychromasia Hypochromasia Basophilic Stippling Anisocytosis Microcytosis Macrocytosis Spherocytes Sickle Cells Target Cells Tear Drop Cells Ovalocytes Stomatocytes Sandy-Redbird Smith Bodies [place] Cells Bite Cells Crenated Cell Acanthocytes (Spur) Rouleaux Schistocytes Sodium Potassium Chloride Carbon Dioxide Anion Gap BUN Creatinine Est GFR (MDRD) Non-Af BUN/Creatinine Ratio Glucose Lactic Acid Calcium Total Bilirubin AST ALT Alkaline Phosphatase Total Protein Albumin Globulin Albumin/Globulin Ratio Discharge Plan Triage Chief Complaint: General Illness ED Provider: Yoselin Merida Dx/Rx/DC Orders Clinical Impression: Viral gastroenteritis, Acute hypokalemia, Hypocalcemia, Abdominal pain Prescriptions: No Action levothyroxine 75 mcg tablet 75 mcg PO QDAY rosuvastatin 20 mg tablet 20 mg PO QHS tacrolimus 1 mg capsule 1 mg PO BID aspirin [Adult Low Dose Aspirin] 81 mg tablet,delayed release (DR/EC) 81 mg PO QDAY nifedipine 60 mg tablet extended release 60 mg PO QDAY tamsulosin 0.4 mg capsule 0.4 mg PO QHS multivitamin Tablet 1 tab PO DAILY Primary Care Provider: Dayne Fajardo Referrals: Dayne Fajardo MD [Primary Care Provider] - Print Language: Syriac
[2024-10-16] MEDS: Ondansetron 4 MG/2 ML Vial IV (22:26)
[2024-10-16] MEDS: 0.9% Normal Saline (1000mL) 1,000 ML 999 ML IV (22:26)
[2024-10-16 23:07] LABS: ALB/GLOB Ratio 1.5 RATIO (0.9-2.4); AST(SGOT) 16 U/L (<=37); Alanine Aminotransfer ALT/SGPT 7 U/L (<=46); Albumin, Serum 2.5 g/dL (3.4-4.8); Alkaline Phosphatase 33 U/L (40-129); Anion Gap 10 (5-15); BUN 24 mg/dL (4-19); BUN/Creat Ratio 43.2 RATIO (10-20); Calcium,Total 5.3 mg/dL (7.6-11.0); Carbon Dioxide 12.3 mmol/L (21.0-32.0); Chloride 118 mmol/L (98-108); Creatinine, Serum 0.56 mg/dL (0.70-1.20); EST Glomerular Filtration Rate 104 (>60); Globulin 1.6 g/dL (2.2-4.2); Glucose 104 mg/dL (70-99); Potassium 2.1 mmol/L (3.3-5.1); Protein, Total 4.1 g/dL (5.9-8.4); Sodium Level 140 mmol/L (133-145); Total Bilirubin 0.23 mg/dL (0.00-1.30)
[2024-10-16 23:08] LABS: Absolute Lymphocyte Count 1.26 X10^3/uL (0.83-4.51); Absolute Neutrophil Count 6.3 X10^3/uL (2.0-7.7); Basophil# 0.02 X10^3/uL; Basophil% 0.2 % (0-1); Hematocrit 37.7 % (40-54); Hemoglobin 13.7 g/dL (13.0-16.5); Lymphocyte # 1.26 X10^3/ul (0.83-4.51); Lymphocyte % 14.6 % (19-41); Mean Corp Hgb Conc 36.3 g/dL (32-36); Mean Corpuscular Volume 90.8 fL (80-94); Mean Platelet Vol. 10.4 fl (6.2-12.0); Monocyte# 1.07 X10^3/uL; Monocyte% 12.4 % (0-10); NRBC Flagged by Analyzer 0 % (0-5); Neutrophil # 6.26 X10^3/uL (2.7-7.7); Neutrophil % 72.6 % (47-70); Platelet Count 181 K/mm3 (150-450); RBC Distribution Width CV 12.8 % (11.6-14.6); RBC Distribution Width SD 42.4 fl (35.1-43.9); Red Blood Count 4.15 M/mm3 (4.6-6.2); White Blood Count 8.6 K/mm3 (4.4-11.0)
[2024-10-16 23:16] VITALS: PULSE 82; RESP 19; O2SAT 98
[2024-10-16] MEDS: Calcium Chloride 1 GM/10 ML Syringe IVP (23:25)
[2024-10-16 23:26] LABS: Lactic Acid < 1.0 mmol/L (0.0-2.0)
--- NOTE | 2024-10-16 23:32 | EKG12_ITS ---
Test Reason : DYSRHYTHMIA Blood Pressure : */* mmHG Vent. Rate : 86 BPM Atrial Rate : 86 BPM P-R Int : 172 ms QRS Dur : 82 ms QT Int : 386 ms P-R-T Axes : 29 -28 29 degrees QTcB Int : 461 ms Normal sinus rhythm Minimal voltage criteria for LVH, may be normal variant ( R in aVL ) Borderline ECG Confirmed by Cresencio Michaels ([id number]), department editor CATHRYN MOULTON ([id number]) on 10/19/2024 6:56:06 AM Referred By: Confirmed By: Cresencio Michaels
[2024-10-17] VITALS (20 sets, daily range): BP systolic 123–190; BP diastolic 65–113; PULSE 74–95; RESP 16–27; TEMP 36.8; O2SAT 90–99; BMI 32.6
[2024-10-17] MEDS: Potassium Chloride 10mEq/100mL 10 MEQ/100 ML IV.SOLN. 100 MEQ IV BOLUS ×4 (00:23→03:44)
[2024-10-17 00:24] LABS: Magnesium 1.1 mg/dL (1.5-2.2)
[2024-10-17] MEDS: Magnesium Sulfate 2 GM in Dextrose 5%-Water (100mL Bag) 100 ML IV (01:18)
--- NOTE | 2024-10-17 02:40 | RAD_ITS ---
PROCEDURE: ABDOMEN SINGLE VIEW (PORTABLE) N/A REASON FOR EXAM: NG INSERTION TECHNIQUE: Single view abdomen. FINDINGS: The nasogastric tube kinked back upon itself at the side port in the area of the GE junction/proximal stomach with the tube extending back up retrograde into the distal esophagus. Requires repositioning. Dilated small bowel loops seen in the visualized left abdomen. Surgical clips right upper quadrant. RAD/Abdomen Single View (Portable) IMPRESSION: The nasogastric tube kinked back upon itself at the side port in the area of th e GE junction/proximal stomach with the tube extending back up retrograde into the distal esophagus. Requires repositioning. Reading Location: [id number]
--- NOTE | 2024-10-17 08:13 | PCA ---
CALLED AT 0810 FOR A BED UPDATE. KIKI FROM [facility] SAID IT WAS DISCHARGE DEPENDED AND NOT SURE WHEN A BED WOULD BE AVAILABLE?
[2024-10-17] MEDS: hydrALAZINE 20 MG/ML Vial IV (09:29)
--- NOTE | 2024-10-17 12:06 | PCA ---
CC CALLED WITH A BED @ 1200. H71 BED 20 RIDE WILL BE HERE @ [id number]
[2024-10-17] MEDS: Tacrolimus Anhydrous 1 MG Capsule PO (12:20)
--- NOTE | 2024-10-17 13:19 | ED.RN ---
REPORT CALLED TO BENNY BURR AT [facility]
== END 2024-10-17 15:05 | disposition short-term general hospital (02) ==
PROVIDERS: Emergency Medicine; Emergency Provider Emergency Medicine; PCP Internal Medicine; Visit Provider Emergency Medicine
DX: K56.609 Unspecified intestinal obstruction, unspecified as to partial versus complete obstruction (principal); K74.60 Unspecified cirrhosis of liver; Z94.4 Liver transplant status; A08.4 Viral intestinal infection, unspecified; E87.6 Hypokalemia; E78.2 Mixed hyperlipidemia; E83.51 Hypocalcemia; I10 Essential (primary) hypertension; N40.0 Benign prostatic hyperplasia without lower urinary tract symptoms; Z87.19 Personal history of other diseases of the digestive system; Z79.82 Long term (current) use of aspirin; Z79.899 Other long term (current) drug therapy
CPT/HCPCS: 74018; 74177; 80053; 83605; 85025; 87631; 93005; 96361; 96365; 96366; 96367; 96375; 99285; Q9967; A4216; J2405